=== PATIENT | female | born 1935 | race Caucasian/White ===

== ENCOUNTER → 2016-08-29 | Outpatient (CLI) | payer MEDICARE, MEDICAID ==
--- NOTE | 2016-08-29 11:08 | REP ---
Chest two views HISTORY: Cough Comparison: 07/26/2012 The lungs are hyperinflated. A minimal increase in interstitial markings is present in the lungs. The heart is normal in size. The pulmonary vasculature is normal in appearance. The bony structure is intact. IMPRESSION: COPD.
== END ==
LOC: M CLY 10:14
PROVIDERS: ATTEND Physician Assistant
DX: J44.9 Chronic obstructive pulmonary disease, unspecified (principal)

== ENCOUNTER → 2016-11-27 | Outpatient (REF) | payer MEDICARE, MEDICAID ==
[2016-11-27 18:35] LABS: ALBUMIN/GLOBULIN RATIO 1.33 (1.00-1.93); ALKALINE PHOSPHATASE 110 U/L (45-117); ALT/SGPT 27 U/L (12-78); ANION GAP 10 MEQ/L (8-16); AST/SGOT 20 U/L (15-37); BILIRUBIN,TOTAL 0.8 MG/DL (0.2-1.0); BLOOD UREA NITROGEN 14 MG/DL (7-18); CALCIUM LEVEL 9.4 MG/DL (8.8-10.2); CARBON DIOXIDE LEVEL 24 MEQ/L (21-32); CHLORIDE LEVEL 107 MEQ/L (98-107); CHOLESTEROL LEVEL 177 MG/DL (<200); CREATININE FOR GFR 0.85 MG/DL (0.55-1.02); GLOMERULAR FILTRATION RATE > 60.0 (>32); GLUCOSE, FASTING 117 MG/DL (83-110); SODIUM LEVEL 141 MEQ/L (136-145); TRIGLYCERIDES LEVEL 187 MG/DL (<150)
== END ==
LOC: M SFHCCAPE 09:38
PROVIDERS: ATTEND Physician Assistant
DX: R73.01 Impaired fasting glucose (principal); E78.5 Hyperlipidemia, unspecified

== ENCOUNTER 2017-03-10 21:48 | Emergency (ER) | payer OTHER, MEDICAID ==
[~2017-03-10] VITALS: Ht 172.7 cm; Wt 81.8 kg
[2017-03-10] MEDS ORDERED: LOSA50TA20 PO (22:01)
[2017-03-10] MEDS ORDERED: EZET10TA PO (22:01)
[2017-03-10] MEDS ORDERED: ASPI1TAB PO (22:01)
[2017-03-10] MEDS ORDERED: PREDOPD (22:01)
[2017-03-10] MEDS ORDERED: ATEN50TA2 PO (22:01)
[2017-03-10] MEDS ORDERED: SILVER NITRATE APPLICATOR TOP ONE (22:45)
[2017-03-10] MEDS ORDERED: COCAINE 4% TOP SOLN 4 ML VIAL TOP ONE (22:45)
[2017-03-10 22:58] VITALS: BP 143/82
== END 2017-03-10 22:59 | disposition home or self-care (01) ==
LOC: M ED 21:48
DX: R04.0 Epistaxis (principal); I10 Essential (primary) hypertension; E78.5 Hyperlipidemia, unspecified; Z79.899 Other long term (current) drug therapy; Z79.82 Long term (current) use of aspirin

== ENCOUNTER → 2017-06-18 | Outpatient (REF) | payer OTHER, MEDICAID ==
[2017-06-18 17:53] LABS: ALBUMIN 3.7 GM/DL (3.2-5.2); ALBUMIN/GLOBULIN RATIO 1.19 (1.00-1.93); ALKALINE PHOSPHATASE 106 U/L (45-117); ALT/SGPT 23 U/L (12-78); ANION GAP 10 MEQ/L (8-16); AST/SGOT 17 U/L (7-37); BILIRUBIN,TOTAL 0.6 MG/DL (0.2-1.0); BLOOD UREA NITROGEN 13 MG/DL (7-18); CALCIUM LEVEL 8.7 MG/DL (8.8-10.2); CARBON DIOXIDE LEVEL 25 MEQ/L (21-32); CHLORIDE LEVEL 106 MEQ/L (98-107); CHOLESTEROL LEVEL 151 MG/DL (<200); CHOLESTEROL RISK RATIO 3.145 (<5); CREATININE FOR GFR 0.83 MG/DL (0.55-1.30); GLOMERULAR FILTRATION RATE > 60.0 (>32); GLUCOSE, FASTING 129 MG/DL (70-100); HDL CHOLESTEROL 48 MG/DL (>40); LDL CHOLESTEROL 75.6 MG/DL (<100); NON-HDL-C 103 MG/DL; POTASSIUM SERUM 3.9 MEQ/L (3.5-5.1); SODIUM LEVEL 141 MEQ/L (136-145); TOTAL PROTEIN 6.8 GM/DL (6.4-8.2); TRIGLYCERIDES LEVEL 137 MG/DL (<150)
[2017-06-18 18:58] LABS: CREATININE, URINE 28.2 MG/DL; MALB URINE SIEMENS < 5.0 MG/L; MAU/CREAT RATIO 17.7 MCG/MG (0.0-30.0)
[2017-06-18 20:01] LABS: ESTIMATED AVERAGE GLUCOSE 157 MG/DL (60-110); HEMOGLOBIN A1c 7.1 %
== END ==
LOC: M SFHCCAPE 08:40
DX: I10 Essential (primary) hypertension (principal); E11.9 Type 2 diabetes mellitus without complications
CPT/HCPCS: 80053

== ENCOUNTER → 2017-12-05 | Outpatient (REF) | payer OTHER, MEDICAID ==
[2017-12-05 17:26] LABS: ALBUMIN/GLOBULIN RATIO 1.29 (1.00-1.93); ALKALINE PHOSPHATASE 108 U/L (45-117); ALT/SGPT 25 U/L (12-78); ANION GAP 9 MEQ/L (8-16); AST/SGOT 17 U/L (7-37); BILIRUBIN,TOTAL 0.8 MG/DL (0.2-1.0); BLOOD UREA NITROGEN 9 MG/DL (7-18); CARBON DIOXIDE LEVEL 25 MEQ/L (21-32); CHLORIDE LEVEL 109 MEQ/L (98-107); CHOLESTEROL LEVEL 162 MG/DL (<200); CHOLESTEROL RISK RATIO 3.056 (<5); GLOMERULAR FILTRATION RATE > 60.0 (>32); GLUCOSE, FASTING 118 MG/DL (70-100); HDL CHOLESTEROL 53 MG/DL (>40); LDL CHOLESTEROL 78.2 MG/DL (<100); NON-HDL-C 109 MG/DL; SODIUM LEVEL 143 MEQ/L (136-145); TOTAL PROTEIN 7.1 GM/DL (6.4-8.2); TRIGLYCERIDES LEVEL 154 MG/DL (<150)
[2017-12-05 17:34] LABS: ESTIMATED AVERAGE GLUCOSE 160 MG/DL (60-110); HEMOGLOBIN A1c 7.2 %
== END ==
LOC: M SFHCCAPE 08:57
DX: I10 Essential (primary) hypertension (principal); E11.9 Type 2 diabetes mellitus without complications
CPT/HCPCS: 80053

== ENCOUNTER → 2017-12-18 | Outpatient (CLI) | payer OTHER, MEDICAID | LOC: M CLY 13:25 | DX: M25.561 Pain in right knee (principal) | CPT/HCPCS: 73564 ==

== ENCOUNTER → 2018-02-20 | Outpatient (REF) | payer OTHER, MEDICAID | LOC: M LAB REF 13:09 | DX: L02.411 Cutaneous abscess of right axilla (principal) | CPT/HCPCS: 87186 ==

== ENCOUNTER → 2018-04-03 | Outpatient (REF) | payer OTHER, MEDICAID ==
[2018-04-03 16:54] LABS: BASO % 0.6 % (0.0-1.0); EOS # 0.2 10^3/uL (0.0-0.50); EOS % 3.5 % (0.0-3.0); HEMATOCRIT 39.2 % (36.0-47.0); HEMOGLOBIN 13.3 g/dl (12.0-15.5); IMMATURE GRANULOCYTE % 0.4 % (0-3.0); LYMPH # 1.6 10^3/uL (1.5-4.5); LYMPH % 29.4 % (24.0-44.0); MEAN CORPUSCULAR HEMOGLOBIN 30.9 pg (27.0-33.0); MEAN CORPUSCULAR HGB CONC 33.9 g/dl (32.0-36.5); MONO # 0.6 10^3/uL (0.0-0.8); MONO % 11.9 % (0.0-5.0); NEUTROPHILS # 2.9 10^3/uL (1.8-7.7); NEUTROPHILS % 54.2 % (36.0-66.0); PLATELET COUNT, AUTOMATED 180 10^3/uL (150-450); RED BLOOD COUNT 4.31 10^6/uL (4.00-5.40); RED CELL DISTRIBUTION WIDTH 13.7 % (11.5-14.5); WHITE BLOOD COUNT 5.4 10^3/uL (4.0-10.0)
[2018-04-03 17:00] LABS: ALBUMIN 3.9 GM/DL (3.2-5.2); ALBUMIN/GLOBULIN RATIO 1.39 (1.00-1.93); ALKALINE PHOSPHATASE 104 U/L (45-117); ALT/SGPT 24 U/L (12-78); ANION GAP 8 MEQ/L (8-16); AST/SGOT 16 U/L (7-37); BILIRUBIN,TOTAL 0.8 MG/DL (0.2-1.0); BLOOD UREA NITROGEN 16 MG/DL (7-18); CALCIUM LEVEL 8.8 MG/DL (8.8-10.2); CARBON DIOXIDE LEVEL 27 MEQ/L (21-32); CHLORIDE LEVEL 105 MEQ/L (98-107); CHOLESTEROL LEVEL 162 MG/DL (<200); CHOLESTEROL RISK RATIO 3.306 (<5); CREATININE FOR GFR 0.94 MG/DL (0.55-1.30); GLOMERULAR FILTRATION RATE > 60.0 (>32); GLUCOSE, FASTING 137 MG/DL (70-100); HDL CHOLESTEROL 49 MG/DL (>40); LDL CHOLESTEROL 86 MG/DL (<100); NON-HDL-C 113 MG/DL; POTASSIUM SERUM 4.3 MEQ/L (3.5-5.1); SODIUM LEVEL 140 MEQ/L (136-145); TOTAL PROTEIN 6.7 GM/DL (6.4-8.2); TRIGLYCERIDES LEVEL 137 MG/DL (<150)
[2018-04-03 17:13] LABS: ESTIMATED AVERAGE GLUCOSE 163 MG/DL (60-110); HEMOGLOBIN A1c 7.3 %
[2018-04-03 17:28] LABS: MALB URINE SIEMENS 14.7 MG/L; MAU/CREAT RATIO 6.4 MCG/MG (0.0-30.0)
== END ==
LOC: M SFHCCAPE 08:37
DX: I10 Essential (primary) hypertension (principal); E11.9 Type 2 diabetes mellitus without complications; E78.5 Hyperlipidemia, unspecified
CPT/HCPCS: 84443

== ENCOUNTER 2018-07-08 15:35 | Emergency (ER) | payer MEDICARE, MEDICAID ==
[~2018-07-08] VITALS: Ht 175.3 cm; Wt 81.8 kg
[~2018-07-08 15:35] MED LIST: ASPI1TAB PO; ATEN50TA2 PO; EZET10TA PO; LOSA50TA88 PO; PREDOPD
[2018-07-08] MEDS ORDERED: DICL1GEL3 (15:40)
[2018-07-08] MEDS ORDERED: SILVER NITRATE APPLICATOR TOP ONE (18:15)
[2018-07-08] MEDS ORDERED: LOSARTAN 50 MG TAB PO ONE (18:15)
[2018-07-08 20:21] VITALS: BP 143/90
== END 2018-07-08 20:27 | disposition home or self-care (01) ==
LOC: M ED 15:35
DX: R04.0 Epistaxis (principal); I10 Essential (primary) hypertension; E78.5 Hyperlipidemia, unspecified; Z79.899 Other long term (current) drug therapy

== ENCOUNTER → 2018-11-05 | Outpatient (REF) | payer MEDICARE, MEDICAID ==
[~2018-11-05] MED LIST changes: -ASPI1TAB PO; +ASPI81TA26 PO; +DICL1GEL3; -EZET10TA PO; +EZET10TA21 PO
[2018-11-05 19:23] LABS: BASO % 0.7 % (0.0-1.0); EOS # 0.2 10^3/uL (0.0-0.50); EOS % 3.5 % (0.0-3.0); HEMATOCRIT 41.5 % (36.0-47.0); HEMOGLOBIN 13.7 g/dl (12.0-15.5); LYMPH # 2.1 10^3/uL (1.5-4.5); LYMPH % 36.7 % (24.0-44.0); MEAN CORPUSCULAR HEMOGLOBIN 30.2 pg (27.0-33.0); MEAN CORPUSCULAR VOLUME 91.4 fl (80.0-96.0); MONO # 0.6 10^3/uL (0.0-0.8); MONO % 10.3 % (0.0-5.0); NEUTROPHILS # 2.8 10^3/uL (1.8-7.7); NEUTROPHILS % 48.5 % (36.0-66.0); PLATELET COUNT, AUTOMATED 186 10^3/uL (150-450); RED BLOOD COUNT 4.54 10^6/uL (4.00-5.40); WHITE BLOOD COUNT 5.8 10^3/uL (4.0-10.0)
[2018-11-05 19:30] LABS: ALBUMIN 4.3 GM/DL (3.2-5.2); ALT/SGPT 22 U/L (12-78); BILIRUBIN,TOTAL 0.8 MG/DL (0.2-1.0); BLOOD UREA NITROGEN 14 MG/DL (7-18); CALCIUM LEVEL 9.8 MG/DL (8.8-10.2); CARBON DIOXIDE LEVEL 27 MEQ/L (21-32); CHLORIDE LEVEL 105 MEQ/L (98-107); CHOLESTEROL LEVEL 226 MG/DL (<200); CHOLESTEROL RISK RATIO 4.035 (<5); CREATININE FOR GFR 0.91 MG/DL (0.55-1.30); FREE T4 1.07 NG/DL (0.76-1.46); GLOMERULAR FILTRATION RATE > 60.0 (>32); GLUCOSE, FASTING 118 MG/DL (70-100); HDL CHOLESTEROL 56 MG/DL (>40); LDL CHOLESTEROL 130 MG/DL (<100); NON-HDL-C 170 MG/DL; POTASSIUM SERUM 4.1 MEQ/L (3.5-5.1); SODIUM LEVEL 140 MEQ/L (136-145); TOTAL PROTEIN 7.6 GM/DL (6.4-8.2); TRIGLYCERIDES LEVEL 198 MG/DL (<150)
[2018-11-05 19:52] LABS: CREATININE, URINE 37.9 MG/DL; MALB URINE SIEMENS 12.4 MG/L; MAU/CREAT RATIO 32.7 MCG/MG (0.0-30.0)
[2018-11-05 19:53] LABS: HEMOGLOBIN A1c 7.1 %
== END ==
LOC: M SFHCCAPE 09:10
PROVIDERS: ATTEND Physician Assistant
DX: I10 Essential (primary) hypertension (principal); E78.5 Hyperlipidemia, unspecified; E11.9 Type 2 diabetes mellitus without complications

== ENCOUNTER → 2019-01-16 | Outpatient (REF) | payer MEDICARE, MEDICAID ==
[2019-01-16 17:47] LABS: FREE T4 1.05 NG/DL (0.76-1.46); THYROID STIMULATING HORMONE 4.28 uIU/ML (0.358-3.740)
== END ==
LOC: M SFHCCAPE 09:09
PROVIDERS: ATTEND Physician Assistant
DX: R79.89 Other specified abnormal findings of blood chemistry (principal); I10 Essential (primary) hypertension

== ENCOUNTER → 2019-03-17 | Outpatient (REF) | payer MEDICARE, MEDICAID ==
[2019-03-17 17:08] LABS: ALBUMIN 3.9 GM/DL (3.2-5.2); ALT/SGPT 23 U/L (12-78); BILIRUBIN,TOTAL 1.2 MG/DL (0.2-1.0); BLOOD UREA NITROGEN 16 MG/DL (7-18); CALCIUM LEVEL 9.2 MG/DL (8.8-10.2); CARBON DIOXIDE LEVEL 28 MEQ/L (21-32); CHLORIDE LEVEL 103 MEQ/L (98-107); CHOLESTEROL LEVEL 180 MG/DL (<200); CHOLESTEROL RISK RATIO 3.529 (<5); GLOMERULAR FILTRATION RATE > 60.0 (>32); GLUCOSE, FASTING 130 MG/DL (70-100); HDL CHOLESTEROL 51 MG/DL (>40); LDL CHOLESTEROL 106 MG/DL (<100); NON-HDL-C 129 MG/DL; POTASSIUM SERUM 4.2 MEQ/L (3.5-5.1); SODIUM LEVEL 140 MEQ/L (136-145); TOTAL PROTEIN 7.2 GM/DL (6.4-8.2); TRIGLYCERIDES LEVEL 116 MG/DL (<150)
[2019-03-17 19:23] LABS: HEMOGLOBIN A1c 7.3 %
== END ==
LOC: M SFHCCAPE 08:30
PROVIDERS: ATTEND Physician Assistant
DX: E11.69 Type 2 diabetes mellitus with other specified complication (principal)

== ENCOUNTER → 2019-09-23 | Outpatient (REF) | payer OTHER, MEDICAID ==
[2019-09-23 12:59] LABS: BLOOD UREA NITROGEN 13 MG/DL (7-18); CALCIUM LEVEL 9.1 MG/DL (8.8-10.2); CARBON DIOXIDE LEVEL 26 MEQ/L (21-32); CHLORIDE LEVEL 108 MEQ/L (98-107); CREATININE FOR GFR 0.74 MG/DL (0.55-1.30); FREE T4 1.17 NG/DL (0.76-1.46); GLOMERULAR FILTRATION RATE > 60.0 (>32); GLUCOSE, FASTING 118 MG/DL (70-100); POTASSIUM SERUM 4.2 MEQ/L (3.5-5.1); SODIUM LEVEL 142 MEQ/L (136-145)
== END ==
LOC: M SFHCCLAY 08:56
PROVIDERS: ATTEND Nurse Practitioner Family
DX: E03.9 Hypothyroidism, unspecified (principal); E11.69 Type 2 diabetes mellitus with other specified complication

== ENCOUNTER → 2019-10-02 | Outpatient (CLI) | payer OTHER, MEDICAID ==
[~2019-10-02] MED LIST changes: +AMLO2.5T3 PO; +METF500T13 PO; +PRED20TA PO; +PREDOPD OU; +VENTAER INH
--- NOTE | 2019-10-03 01:49 | REP ---
Clinical: Nontraumatic left elbow pain Technique: AP, lateral, bilateral oblique views of the left elbow. Findings: Generalized age-related changes to the osseous structures and joint space is noted. No acute fracture or dislocation is appreciated. Surrounding soft tissues are unremarkable. Lateral view demonstrates normal positioning to the anterior and posterior fat pads without evidence for effusion/hemarthrosis. No subcutaneous emphysema or foreign body identified. Impression: Generalized age-related changes. Electronically Signed by Benjamin Casiano MD 10/03/2019 01:41 A
== END ==
LOC: M CLY 13:35
PROVIDERS: ATTEND Physician Assistant
DX: M25.522 Pain in left elbow (principal)
CPT/HCPCS: 73080; G0463

== ENCOUNTER 2020-03-20 18:12 | Inpatient (IN) | payer OTHER, MEDICAID ==
[~2020-03-20] VITALS: Ht 175.3 cm; Wt 77.9 kg
[~2020-03-20 18:12] MED LIST changes: -AMLO2.5T3 PO; -METF500T13 PO; -PRED20TA PO; -PREDOPD OU; -VENTAER INH
[2020-03-20] MEDS ORDERED: COMBIVENT RESPIMAT 100-20MCG INHALER 4GM INH ONE (18:45)
[2020-03-20 18:51] VITALS: O2SAT 92
[2020-03-20] MEDS ORDERED: METF500T13 PO (18:54)
[2020-03-20] MEDS ORDERED: AMLO2.5T3 PO (18:54)
[2020-03-20 19:03] LABS: BASO % 0.3 % (0.0-1.0); HEMATOCRIT 37.7 % (36.0-47.0); HEMOGLOBIN 12.4 g/dl (12.0-15.5); LYMPH # 0.8 10^3/uL (1.5-5.0); MEAN CORPUSCULAR HEMOGLOBIN 29.6 pg (27.0-33.0); MEAN CORPUSCULAR HGB CONC 32.9 g/dl (32.0-36.5); MONO # 0.4 10^3/uL (0.0-0.8); MONO % 13.5 % (0.0-5.0); NEUTROPHILS # 1.7 10^3/uL (1.5-8.5); NEUTROPHILS % 58.5 % (36.0-66.0); PLATELET COUNT, AUTOMATED 141 10^3/uL (150-450); RED BLOOD COUNT 4.19 10^6/uL (4.00-5.40); WHITE BLOOD COUNT 2.9 10^3/uL (4.0-10.0)
[2020-03-20 19:13] LABS: INR 0.97; PROTHROMBIN TIME 13.1 SECONDS (12.5-14.3)
[2020-03-20 19:14] LABS: PARTIAL THROMBOPLASTIN TIME 35.4 SECONDS (24.2-38.5)
[2020-03-20] MEDS ORDERED: ACETAMINOPHEN TAB 650MG DOSE (2X325MG) PO ONE (19:15)
[2020-03-20 19:16] LABS: D-DIMER QUANT 682.72 ng/ml (<500)
[2020-03-20 19:29] LABS: ALBUMIN 3.7 GM/DL (3.2-5.2); ALT/SGPT 36 U/L (12-78); BILIRUBIN,DIRECT 0.3 MG/DL (0.0-0.2); BILIRUBIN,TOTAL 0.7 MG/DL (0.2-1.0); BLOOD UREA NITROGEN 12 MG/DL (7-18); CALCIUM LEVEL 8.2 MG/DL (8.8-10.2); CARBON DIOXIDE LEVEL 23 MEQ/L (21-32); CHLORIDE LEVEL 106 MEQ/L (98-107); CK-MB VALUE MASS < 1.0 NG/ML (<3.6); CPK CREATINE PHOSPHOKINASE 64 U/L (26-192); CREATININE FOR GFR 0.81 MG/DL (0.55-1.30); GLOMERULAR FILTRATION RATE > 60.0 (>32); GLUCOSE, FASTING 122 MG/DL (70-100); MB/CK RELATIVE INDEX 1.56 (< OR =4); NT-PRO BNP 136 PG/ML (<450); POTASSIUM SERUM 3.9 MEQ/L (3.5-5.1); SODIUM LEVEL 139 MEQ/L (136-145); TOTAL PROTEIN 6.8 GM/DL (6.4-8.2); TROPONIN I < 0.02 NG/ML (< 0.10)
[2020-03-20] MEDS ORDERED: ISOVUE-370 76% 100ML VIAL As Ordered ONE (19:53)
[2020-03-20] MEDS ORDERED: HumaLOG INSULIN (NovoLOG) PER UNIT SC SCH (21:00)
--- NOTE | 2020-03-20 21:16 | REPVR ---
PROCEDURE INFORMATION: Exam: CT Angiography Chest With Contrast Exam date and time: 03/20/2020 8:17 PM Age: 84 years old Clinical indication: Shortness of breath; Chest pain; Additional info: Chest pain, SOB TECHNIQUE: Imaging protocol: Computed tomographic angiography of the chest with intravenous contrast. 3D rendering (Not supervised by radiologist): MIP and/or 3D reconstructed images were created by the technologist. Radiation optimization: All CT scans at this facility use at least one of these dose optimization techniques: automated exposure control; mA and/or kV adjustment per patient size (includes targeted exams where dose is matched to clinical indication); or iterative reconstruction. Contrast material: ISOVUE 370; Contrast volume: 75 ml; Contrast route: INTRAVENOUS (IV); COMPARISON: CR CHEST 2 VIEW 08/29/2016 10:32 AM FINDINGS: Pulmonary arteries: There is opacification of the pulmonary arteries with no evidence of pulmonary embolus. Aorta: There is opacification of the aorta which appears intact. Lungs: There is no evidence of pneumothorax or pleural effusion. There are a few scattered patchy areas of interstitial density greater on the left which may represent interstitial pneumonic infiltrate. Heart: The heart is normal in size and there is no pericardial effusion. Lymph nodes: Unremarkable. No enlarged lymph nodes. Bones/joints: Unremarkable. No acute fracture. Soft tissues: Unremarkable. IMPRESSION: 1. No evidence of pulmonary embolus. 2. Small patchy areas of interstitial infiltrate including the left hilar region and lung bases. Electronically signed by: Jose D Garcia On 03/20/2020 21:15:53 PM
[2020-03-20 22:11] LABS: C REACTIVE PROTEIN QUANTITATIV 2.77 MG/DL (0.00-0.30)
[2020-03-20] MEDS ORDERED: PREDOPD OU (22:11)
[2020-03-20] MEDS ORDERED: MAALOX 30 ML SUSP *UDC PO PRN (22:45)
[2020-03-20] MEDS ORDERED: MOM 30ML SUSPENSION UDC PO PRN (22:45)
[2020-03-20] MEDS ORDERED: GLUCAGON INJ 1MG VIAL SC PRN (22:45)
[2020-03-20] MEDS ORDERED: GLUCOSE 4GM CHEW TABLET PO PRN (22:45)
[2020-03-20] MEDS ORDERED: DEXTROSE 50% 50 ML SYRINGE IV PRN (22:45)
--- NOTE | 2020-03-20 23:30 | HPEPDOC ---
[facility] Medical History & Physical Date of Admission Mar 20, 2020 Date of Service: Mar 20, 2020 Primary Care Physician: Samantha Olivier DIETITIAN ASSISTANT Attending Physician: FELIX ARNOLD MD History and Physical TIME OF SERVICE: 1000pm CHIEF COMPLAINT: HISTORY OF PRESENT ILLNESS: This 84-year-old female's ex- was diagnosed with COVID-19 on Mar 12 recently stayed with her; she was under quarantine until Mar 16 but developed symptoms. Specifically she has developed gradually worsening chest pain, back pain, shortness of breath, cough active of yellow sputum & muscle aches for 2 days. Apparently her REVIEW OF SYSTEMS: 12 point review of systems negative except as listed in HPI PAST MEDICAL/ SURGICAL HISTORY: Chronic HTN NIDDM A1C 7.2% Iritis Uveitis Cholecystectomy Bilateral lumpectomy Hysterectomy Left knee surgery SOCIAL HISTORY: Doesn't' smoke FAMILY HISTORY: Father throat cancer Mother liver and colon cancer. Daughter congenital heart defect ALLERGIES: Please see below. HOME MEDICATIONS: Please see below. PHYSICAL EXAMINATION: VITAL SIGNS: Please see below. GEN: well nourished / well developed/ NAD HEENT: mask is covering lower face CVS: RRR/ NMRG/ no lower extremity edema LUNGS: there is no nasal flaring / she is able to speak full sentences without stopping to take a breath / she is coughing occasionally / she is not using accessory muscles / there is normal respiratory expansion/ lungs are CTAB on RA MSK/EXTREMITIES: NCAT /reclined in hospital bed NEURO: CN 2-12 are grossly intact / speech is not dysarthric PSYCH: alert and oriented to person place and time/ able to understand and follow all commands LABORATORY DATA: 03/20/20 18:47 03/21/20 00:35 Laboratory Tests 2 03/20/20 18:46: Ferritin 307H, Lactate Dehydrogenase 239, C-Reactive Protein, Quantitative 2.77H, Triglycerides Level 67 03/20/20 18:47: Immature Granulocyte % (Auto) 0.7, Neutrophils (%) (Auto) 58.5, Lymphocytes (%) (Auto) 26.0, Monocytes (%) (Auto) 13.5H, Eosinophils (%) (Auto) 1.0, Basophils (%) (Auto) 0.3, Neutrophils # (Auto) 1.7, Lymphocytes # (Auto) 0.8L, Monocytes # (Auto) 0.4, Eosinophils # (Auto) 0.0, Basophils # (Auto) 0.0, Nucleated Red Blood Cells % (auto) 0.0, Prothrombin Time 13.1, Prothromb Time International Ratio 0.97, Activated Partial Thromboplast Time 35.4, Fibrinogen 485H, D-Dimer, Quantitative 682.72H, Anion Gap 10, Glomerular Filtration Rate > 60.0, Calcium Level 8.2L, Total Bilirubin 0.7, Direct Bilirubin 0.3H, Aspartate Amino Transf (AST/SGOT) 32, Alanine Aminotransferase (ALT/SGPT) 36, Alkaline Phosphatase 90, Total Creatine Kinase 64, Creatine Kinase MB < 1.0, Creatine Kinase MB Relative Index 1.56, Troponin I < 0.02, WR-Ylh-V-Type Natriuretic Peptide 136, Total Protein 6.8, Albumin 3.7, Albumin/Globulin Ratio 1.2, Thyroid Stimulating Hormone (TSH) 2.910 IMAGING: CT chest "IMPRESSION: 1. No evidence of pulmonary embolus. 2. Small patchy areas of interstitial infiltrate including the left hilar region and lung bases." MICROBIOLOGY: + COVID 19 / Blood cx pending... ASSESSMENT: is an 84 yr old w a hx of HTN, DM, Iritis & Uveitis who presented w cough, dyspnea, myalgias, chest & back pain after COVID-19 exposure and will be admitted for SIRS/Sepsis 2/2 COVID-19. PLAN: 1. SIRS /Sepsis 2/2 COVID-19 Based on an algorithm developed by the [employer], requested admission because the patient's O2 sats are in the low 90s and her hx of DM and age place her at high risk for deterioration. SIRS criteria: Temp >10.5 WBC <4 / RR 24 Labs that support the diagnosis of COVID include low WBC #, high CRP, low Plts, high ferritin and high d-dimer Plan: admit to medical floor under observation / telemetry / droplet & contact precautions/ continuos pulse ox and supplemental O2 to maintain O2 >92% / Acetaminophen PRN for fever / target MAP at of least 65 to 70 / f/u Is and Os with target UOP of at least 0.5 ml/kg/H / f/u FSBS w target serum glucose 140-180 while acutely ill 2. Chronic HTN Plan: amlodipine, atenolol, losartan 3. NIDDM Her A1C is at the target for her age therefore she doesn't need PO antiglycemic agents Plan: diabetic diet / f/u accuchecks & A1C / hypoglycemia protocol / sliding scale insulin DVT PROPHYLAXIS: lovenox DISPOSITION: home after more than 2 midnight's stay Home Medications Scheduled Amlodipine Besylate (Amlodipine Besylate) 2.5 Mg Tablet, 2.5 MG PO DAILY Atenolol (Atenolol) 50 Mg Tab, 50 MG PO DAILY Losartan Potassium (Losartan Potassium) 50 Mg Tab, 50 MG PO BID Prednisolone Acetate (Prednisolone Acetate 1% Opth Susp) 5 Ml Drops.susp, 1 DROP OU DAILY Allergies Coded Allergies: No Known Allergies (Unverified , 03/10/17) A-FIB/CHADSVASC A-FIB History Current/History of A-Fib/PAF?: No Current PO Anticoag Therapy: No FELIX ARNOLD MD Mar 20, 2020 23:30
[2020-03-20 23:40] VITALS: BP 158/72
[2020-03-21 00:46] LABS: BASO % 0.4 % (0.0-1.0); EOS % 0.7 % (0.0-3.0); HEMATOCRIT 35.8 % (36.0-47.0); HEMOGLOBIN 11.6 g/dl (12.0-15.5); LYMPH # 0.8 10^3/uL (1.5-5.0); LYMPH % 27.6 % (24.0-44.0); MEAN CORPUSCULAR HEMOGLOBIN 29.4 pg (27.0-33.0); MEAN CORPUSCULAR HGB CONC 32.4 g/dl (32.0-36.5); MEAN CORPUSCULAR VOLUME 90.6 fl (80.0-96.0); MONO # 0.3 10^3/uL (0.0-0.8); NEUTROPHILS # 1.7 10^3/uL (1.5-8.5); NEUTROPHILS % 58.9 % (36.0-66.0); PLATELET COUNT, AUTOMATED 131 10^3/uL (150-450); RED BLOOD COUNT 3.95 10^6/uL (4.00-5.40); WHITE BLOOD COUNT 2.8 10^3/uL (4.0-10.0)
[2020-03-21 01:06] LABS: INR 1.08; PROTHROMBIN TIME 14.2 SECONDS (12.5-14.3)
[2020-03-21 01:07] LABS: PARTIAL THROMBOPLASTIN TIME 32.4 SECONDS (24.2-38.5)
[2020-03-21 01:11] LABS: D-DIMER QUANT 620.06 ng/ml (<500)
[2020-03-21 01:21] LABS: FERRITIN 303 NG/ML (8-252); LDH LACTATE DEHYDROGENASE 223 U/L (84-246); NT-PRO BNP 226 PG/ML (<450); TRIGLYCERIDES LEVEL 62 MG/DL (<150); TROPONIN I < 0.02 NG/ML (< 0.10)
[2020-03-21 01:22] LABS: CK-MB VALUE MASS 1.2 NG/ML (<3.6); CPK CREATINE PHOSPHOKINASE 68 U/L (26-192); HEMOGLOBIN A1c 7.2 %; MB/CK RELATIVE INDEX 1.76 (< OR =4); TROPONIN I < 0.02 NG/ML (< 0.10)
[2020-03-21] MEDS: LOSARTAN 50MG TABLET PO SCH ×3 (01:57→21:13)
[2020-03-21 04:00] VITALS: BP 131/62
--- NOTE | 2020-03-21 06:37 | ECGEPIP ---
[facility] - ED Test Date: 2020-03-20 Pat Name: KRYSTYNA MARTINEZ Department: Room: [place] [address] Gender: Female Cooler Deliverer: vita : 1935 Requested By: HELEN Ewing Order Number: [id number] Reading MD: Jabier Fitzpatrick Measurements Intervals [place] Rate: 82 P: -1 ME: 185 QRS: -24 QRSD: 90 T: 63 QT: 359 QTc: 421 Interpretive Statements SINUS RHYTHM BORDERLINE LEFT AXIS DEVIATION MINIMAL ST DEPRESSION CLINICALY CORRELATE NO PRIOR ECG FOR COMPARISON Electronically Signed on 03-21-2020 6:36:55 EST by Jabier Fitzpatrick
[2020-03-21] MEDS: HumaLOG INSULIN (NovoLOG) PER UNIT SC SCH ×2 (07:27→12:09)
[2020-03-21] MEDS: ENOXAPARIN 40MG/0.4ML SYRINGE (J1650 PER 10MG) SC SCH (07:58)
[2020-03-21] MEDS: prednisoLONE ACET 1% OPHTH SUSP 5ML OU SCH (07:59)
[2020-03-21 08:00] VITALS: BP 132/65
[2020-03-21] MEDS: ASPIRIN 81 MG ENTERIC TAB PO SCH (08:00)
[2020-03-21] MEDS: atenoloL 50 MG TAB PO SCH (08:00)
[2020-03-21 08:21] LABS: BASO % 0.4 % (0.0-1.0); EOS % 1.6 % (0.0-3.0); HEMATOCRIT 36.3 % (36.0-47.0); HEMOGLOBIN 11.5 g/dl (12.0-15.5); LYMPH # 0.7 10^3/uL (1.5-5.0); LYMPH % 28.5 % (24.0-44.0); MEAN CORPUSCULAR HEMOGLOBIN 28.9 pg (27.0-33.0); MEAN CORPUSCULAR HGB CONC 31.7 g/dl (32.0-36.5); MEAN CORPUSCULAR VOLUME 91.2 fl (80.0-96.0); MONO # 0.3 10^3/uL (0.0-0.8); MONO % 11.8 % (0.0-5.0); NEUTROPHILS # 1.4 10^3/uL (1.5-8.5); NEUTROPHILS % 57.3 % (36.0-66.0); PLATELET COUNT, AUTOMATED 133 10^3/uL (150-450); RED BLOOD COUNT 3.98 10^6/uL (4.00-5.40); WHITE BLOOD COUNT 2.5 10^3/uL (4.0-10.0)
[2020-03-21 08:32] LABS: INR 1.01; PROTHROMBIN TIME 13.5 SECONDS (12.5-14.3)
[2020-03-21 08:33] LABS: PARTIAL THROMBOPLASTIN TIME 28.9 SECONDS (24.2-38.5)
[2020-03-21 08:44] LABS: BLOOD UREA NITROGEN 8 MG/DL (7-18); CARBON DIOXIDE LEVEL 28 MEQ/L (21-32); CHLORIDE LEVEL 107 MEQ/L (98-107); CREATININE FOR GFR 0.69 MG/DL (0.55-1.30); GLOMERULAR FILTRATION RATE > 60.0 (>32); GLUCOSE, FASTING 118 MG/DL (70-100); SODIUM LEVEL 140 MEQ/L (136-145)
[2020-03-21 08:45] LABS: ALBUMIN 3.4 GM/DL (3.2-5.2); ALT/SGPT 32 U/L (12-78); BILIRUBIN,DIRECT 0.3 MG/DL (0.0-0.2); BILIRUBIN,TOTAL 0.8 MG/DL (0.2-1.0); CALCIUM LEVEL 8.1 MG/DL (8.8-10.2); FERRITIN 298 NG/ML (8-252); MAGNESIUM LEVEL 1.7 MG/DL (1.8-2.4); NT-PRO BNP 343 PG/ML (<450); TOTAL PROTEIN 6.1 GM/DL (6.4-8.2); TROPONIN I < 0.02 NG/ML (< 0.10)
[2020-03-21] MEDS ORDERED: COMBIVENT RESPIMAT 100-20MCG INHALER 4GM INH PRN (09:00)
[2020-03-21] MEDS: PIPERACILLIN/TAZOBACTAM SOD 3.375 GM in D5W MINI-BAG PLUS 50 ML IV SCH ×3 (10:34→21:13)
[2020-03-21] MEDS ORDERED: MAG SULF 1GM/100ML (MAG RUN) 1 GM in IV 1 EA IV ONE (11:00)
[2020-03-21 15:21] VITALS: BP 137/65
[2020-03-21] MEDS: ACETAMINOPHEN TAB 650MG DOSE (2X325MG) PO PRN (15:27)
--- NOTE | 2020-03-21 16:00 | IPNPDOC ---
Text Note Date of Service The patient was seen on 03/21/20. NOTE SUBJECTIVE: This am she was feeling OK. She does have dry cough no phlegm pr oduction. Denied any SOB. SHe did have a fever of 101.3 this afternoon. PHYSICAL EXAMINATION: VITAL SIGNS: Please see below. GEN: well nourished / well developed/ NAD HEENT: NC, AT, Moist mucous membranes, anicteric eyes. CVS: RRR/ NMRG/ no lower extremity edema LUNGS: there is no nasal flaring / she is able to speak full sentences without stopping to take a breath / she is coughing occasionally / she is not using accessory muscles / there is normal respiratory expansion/ lungs are CTAB on RA Abdomen: SOft nontender, bowel sounds normal. NEURO: CN 2-12 are grossly intact / speech is not dysarthric PSYCH: alert and oriented to person place and time/ able to understand and follow all commands LAbs and Radiology: reviewed ASSESSMENT and PLAN: This 84-year-old with PMH of HTN, DM, Iritis & Uveitis had a recent COVID exposure. Her ex- was diagnosed with COVID-19 on Mar 12 recently stayed with her; she was under quarantine until Mar 16 but developed symptoms on 03/18 . Specifically she has developed gradually worsening chest pain, back pain, shortness of breath, cough active of yellow sputum & muscle aches for 2 days. She was tested positive for COVID-19 on 03/20/20 Sepsis 2/2 COVID-19 Based on an algorithm developed by the [employer], requested admission because the patient's O2 sats are in the low 90s and her hx of DM and age place her at high risk for deterioration. SHe remains in room air with sats in 92% to 94% range. Pneumonia COVID pneumonia or secondary bacterial pneumonia will start on Zosyn Procal pending. Chronic HTN amlodipine, atenolol, losartan DM Her A1C is at the target for her age therefore she doesn't need PO antiglycemic agents diet cotrolled. DVT PROPHYLAXIS: lovenox VS,Fishbone, I+O VS, Fishbone, I+O Laboratory Tests 03/20/20 18:47 03/21/20 00:35 03/21/20 07:35 Vital Signs Date Time Temp Pulse Resp B/P (MAP) Pulse Ox O2 Delivery O2 Flow Rate FiO2 03/21/20 15:21 101.3 81 20 137/65 (89) 94 Room Air 03/21/20 04:00 2.0 I&O- Last 24 Hours up to 6 AM 03/21/20 07:00 Intake Total 0 ml Output Total 200 ml Balance -200 ml LUI MATHIS MD Mar 21, 2020 16:00
[2020-03-21 20:00] VITALS: BP 119/57
[2020-03-21 21:13] VITALS: BP 147/67
[2020-03-22 01:21] LABS: HIV SCREEN CENTAUR SOURCE NEGATIVE (NEGATIVE)
[2020-03-22 04:00] VITALS: BP 131/65
[2020-03-22] MEDS: PIPERACILLIN/TAZOBACTAM SOD 3.375 GM in D5W MINI-BAG PLUS 50 ML IV SCH ×4 (04:17→21:06)
[2020-03-22 04:23] VITALS: BP 134/65
[2020-03-22 07:44] VITALS: BP 130/68
[2020-03-22 08:07] LABS: EOS % 0.9 % (0.0-3.0); HEMOGLOBIN 11.5 g/dl (12.0-15.5); LYMPH # 0.7 10^3/uL (1.5-5.0); LYMPH % 21.8 % (24.0-44.0); MEAN CORPUSCULAR HEMOGLOBIN 29.8 pg (27.0-33.0); MEAN CORPUSCULAR HGB CONC 32.9 g/dl (32.0-36.5); MEAN CORPUSCULAR VOLUME 90.7 fl (80.0-96.0); MONO # 0.3 10^3/uL (0.0-0.8); NEUTROPHILS # 2.2 10^3/uL (1.5-8.5); PLATELET COUNT, AUTOMATED 141 10^3/uL (150-450); RED BLOOD COUNT 3.86 10^6/uL (4.00-5.40); WHITE BLOOD COUNT 3.3 10^3/uL (4.0-10.0)
[2020-03-22 08:17] LABS: INR 1.07; PROTHROMBIN TIME 14.1 SECONDS (12.5-14.3)
[2020-03-22 08:18] LABS: PARTIAL THROMBOPLASTIN TIME 34.7 SECONDS (24.2-38.5)
[2020-03-22] MEDS: ASPIRIN 81 MG ENTERIC TAB PO SCH (08:25)
[2020-03-22] MEDS: ACETAMINOPHEN TAB 650MG DOSE (2X325MG) PO PRN (08:25)
[2020-03-22] MEDS: ENOXAPARIN 40MG/0.4ML SYRINGE (J1650 PER 10MG) SC SCH (08:25)
[2020-03-22] MEDS: atenoloL 50 MG TAB PO SCH (08:26)
[2020-03-22] MEDS: LOSARTAN 50MG TABLET PO SCH ×2 (08:26→21:07)
[2020-03-22] MEDS: dexameTHASONE 20MG/5ML VIAL (J1100 PER 1MG) IV SCH (08:27)
[2020-03-22] MEDS: prednisoLONE ACET 1% OPHTH SUSP 5ML OU SCH (08:27)
[2020-03-22 08:37] LABS: ALBUMIN 2.8 GM/DL (3.2-5.2); ALT/SGPT 31 U/L (12-78); BILIRUBIN,DIRECT 0.2 MG/DL (0.0-0.2); BILIRUBIN,TOTAL 0.8 MG/DL (0.2-1.0); BLOOD UREA NITROGEN 8 MG/DL (7-18); CALCIUM LEVEL 7.8 MG/DL (8.8-10.2); CARBON DIOXIDE LEVEL 24 MEQ/L (21-32); CHLORIDE LEVEL 107 MEQ/L (98-107); CREATININE FOR GFR 0.69 MG/DL (0.55-1.30); FERRITIN 294 NG/ML (8-252); GLOMERULAR FILTRATION RATE > 60.0 (>32); GLUCOSE, FASTING 121 MG/DL (70-100); MAGNESIUM LEVEL 1.7 MG/DL (1.8-2.4); NT-PRO BNP 284 PG/ML (<450); POTASSIUM SERUM 3.7 MEQ/L (3.5-5.1); SODIUM LEVEL 137 MEQ/L (136-145); TOTAL PROTEIN 5.9 GM/DL (6.4-8.2)
[2020-03-22 11:25] LABS: HEPATITIS B SURFACE ANTIGEN NEGATIVE (NEGATIVE)
[2020-03-22 11:53] LABS: HIV 1&2 SCREEN CENTAUR NEGATIVE (NEGATIVE)
--- NOTE | 2020-03-22 12:10 | IPNPDOC ---
Text Note Date of Service The patient was seen on 03/22/20. NOTE SUBJECTIVE: This am she was feeling OK. She does have dry cough no phlegm pr oduction. Had hypoxia at night requiring 2 l oxygen now off oxygen again. Blood culture 05/03 positive. PHYSICAL EXAMINATION: VITAL SIGNS: Please see below. GEN: well nourished / well developed/ NAD HEENT: NC, AT, Moist mucous membranes, anicteric eyes. CVS: RRR/ NMRG/ no lower extremity edema LUNGS: there is no nasal flaring / she is able to speak full sentences without stopping to take a breath / she is coughing occasionally / she is not using accessory muscles / there is normal respiratory expansion/ lungs are CTAB on RA Abdomen: SOft nontender, bowel sounds normal. NEURO: CN 2-12 are grossly intact / speech is not dysarthric PSYCH: alert and oriented to person place and time/ able to understand and follow all commands LAbs and Radiology: reviewed ASSESSMENT and PLAN: This 84-year-old with PMH of HTN, DM, Iritis & Uveitis had a recent COVID exposure. Her ex- was diagnosed with COVID-19 on Mar 12 recently stayed with her; she was under quarantine until Mar 16 but developed symptoms on 03/18 . Specifically she has developed gradually worsening chest pain, back pain, shortness of breath, cough active of yellow sputum & muscle aches for 2 days. She was tested positive for COVID-19 on 03/20/20 Sepsis 2/2 COVID-19 Based on an algorithm developed by the [employer], requested admission because the patient's O2 sats are in the low 90s and her hx of DM and age place her at high risk for deterioration. She remains in room air with sats in 92% to 94% range this am She did need oxygen last night. Sats had dropped to 86% in room air. have started her on dexamethasone. Pneumonia COVID pneumonia or secondary bacterial pneumonia on Zosyn Procal pending. follow up blood cultures. Chronic HTN amlodipine, atenolol, losartan DM Her A1C is at the target for her age therefore she doesn't need PO antiglycemic agents diet cotrolled. DVT PROPHYLAXIS: lovenox VS,Fishbone, I+O VS, Fishbone, I+O Laboratory Tests 03/22/20 07:26 Vital Signs Date Time Temp Pulse Resp B/P (MAP) Pulse Ox O2 Delivery O2 Flow Rate FiO2 03/22/20 08:26 130/68 03/22/20 08:26 73 03/22/20 07:44 99.9 18 93 Room Air 03/22/20 04:23 2.0 I&O- Last 24 Hours up to 6 AM 03/22/20 07:00 Intake Total 1140 ml Output Total 400 ml Balance 740 ml LUI MATHIS MD Mar 22, 2020 12:10
[2020-03-22] MEDS: MAG SULF 1GM/100ML (MAG RUN) 1 GM in IV 1 EA IV SCH ×2 (12:15→13:15)
[2020-03-22 12:33] LABS: HEP C VIRUS AB INDEX SOURCE PT < 0.0 INDEX (0.0-0.8); HEPATITIS B SURFACE ANTIGEN NEGATIVE (NEGATIVE)
[2020-03-22 14:35] VITALS: BP 119/76
[2020-03-22 19:46] VITALS: BP 145/70
[2020-03-23] MEDS: PIPERACILLIN/TAZOBACTAM SOD 3.375 GM in D5W MINI-BAG PLUS 50 ML IV SCH ×2 (05:06→09:13)
[2020-03-23 06:00] VITALS: BP 141/72
[2020-03-23 06:51] LABS: BASO % 0.2 % (0.0-1.0); EOS % 0.2 % (0.0-3.0); HEMATOCRIT 34.4 % (36.0-47.0); HEMOGLOBIN 11.3 g/dl (12.0-15.5); LYMPH # 0.7 10^3/uL (1.5-5.0); LYMPH % 15.6 % (24.0-44.0); MEAN CORPUSCULAR HEMOGLOBIN 29.4 pg (27.0-33.0); MEAN CORPUSCULAR HGB CONC 32.8 g/dl (32.0-36.5); MEAN CORPUSCULAR VOLUME 89.6 fl (80.0-96.0); MONO # 0.4 10^3/uL (0.0-0.8); MONO % 8.9 % (0.0-5.0); NEUTROPHILS # 3.4 10^3/uL (1.5-8.5); NEUTROPHILS % 74.4 % (36.0-66.0); PLATELET COUNT, AUTOMATED 168 10^3/uL (150-450); RED BLOOD COUNT 3.84 10^6/uL (4.00-5.40); WHITE BLOOD COUNT 4.6 10^3/uL (4.0-10.0)
[2020-03-23 07:07] LABS: INR 1.01; PROTHROMBIN TIME 13.5 SECONDS (12.5-14.3)
[2020-03-23 07:08] LABS: PARTIAL THROMBOPLASTIN TIME 26.6 SECONDS (24.2-38.5)
[2020-03-23 07:16] LABS: BLOOD UREA NITROGEN 9 MG/DL (7-18); CALCIUM LEVEL 8.5 MG/DL (8.8-10.2); CARBON DIOXIDE LEVEL 27 MEQ/L (21-32); CHLORIDE LEVEL 108 MEQ/L (98-107); CREATININE FOR GFR 0.67 MG/DL (0.55-1.30); FERRITIN 289 NG/ML (8-252); GLOMERULAR FILTRATION RATE > 60.0 (>32); GLUCOSE, FASTING 128 MG/DL (70-100); MAGNESIUM LEVEL 2.1 MG/DL (1.8-2.4); SODIUM LEVEL 140 MEQ/L (136-145)
[2020-03-23] MEDS: atenoloL 50 MG TAB PO SCH (08:23)
[2020-03-23] MEDS: ASPIRIN 81 MG ENTERIC TAB PO SCH (08:23)
[2020-03-23 08:24] VITALS: BP 124/58
[2020-03-23] MEDS: ENOXAPARIN 40MG/0.4ML SYRINGE (J1650 PER 10MG) SC SCH (08:24)
[2020-03-23] MEDS: LOSARTAN 50MG TABLET PO SCH (08:24)
[2020-03-23 08:25] VITALS: BP 124/58
[2020-03-23] MEDS: prednisoLONE ACET 1% OPHTH SUSP 5ML OU SCH (08:27)
[2020-03-23] MEDS: dexameTHASONE 20MG/5ML VIAL (J1100 PER 1MG) IV SCH (09:00)
[2020-03-23] MEDS ORDERED: PRED20TA PO (10:56)
[2020-03-23] MEDS ORDERED: VENTAER INH (11:01)
--- NOTE | 2020-03-23 17:09 | DS.PDOC ---
Discharge Summary General Date of Admission Mar 22, 2020 at 12:11 Date of Discharge 03/23/20 Discharge Summary PROCEDURES PERFORMED DURING STAY: [None]. ADMITTING DIAGNOSES: Sepsis Pneumonia COVID Chronic HTN DM DISCHARGE DIAGNOSES: Sepsis Pneumonia COVID Chronic HTN DM COMPLICATIONS/CHIEF COMPLAINT: Covid 19, Sirs. HISTORY OF PRESENT ILLNESS: This 84-year-old with PMH of HTN, DM, Iritis & Uveitis had a recent COVID exposure. Her ex- was diagnosed with COVID-19 on Mar 12 recently stayed with her; she was under quarantine until Mar 16 but developed symptoms on 03/18 . Specifically she has developed gradually worsening chest pain, back pain, shortness of breath, cough active of yellow sputum & muscle aches for 2 days. She was tested positive for COVID-19 on 03/20/20 HOSPITAL COURSE: During hospital stay the following issues addressed Sepsis 2/2 COVID-19 Patient received treatment with oxygen, steroids. Improved Pneumonia COVID pneumonia Patient received empirically Zosyn Procal negative blood cultures negative Chronic HTN amlodipine, atenolol, losartan DM Her A1C is at the target for her age therefore she doesn't need PO antiglycemic agents diet cotrolled. DISCHARGE MEDICATIONS: Please see below. ALLERGIES: Please see below. PHYSICAL EXAMINATION ON DISCHARGE: VITAL SIGNS: Please see below. GEN: well nourished / well developed/ NAD HEENT: NC, AT, Moist mucous membranes, anicteric eyes. CVS: RRR/ NMRG/ no lower extremity edema LUNGS: there is no nasal flaring / she is able to speak full sentences without stopping to take a breath / she is coughing occasionally / she is not using accessory muscles / there is normal respiratory expansion/ lungs are CTAB on RA Abdomen: Soft nontender, bowel sounds normal. NEURO: CN 2-12 are grossly intact / speech is not dysarthric PSYCH: alert and oriented to person place and time/ able to understand and follow all commands LABORATORY DATA: Please see below. IMAGING: [facility] NAME: KRYSTYNA MARTINEZ DATE OF : 1935 BUSINESS NUMBER: [id number] AGE: 84 SEX: F REPORT #: [id number] ROOM: ED TECHNOLOGIST: [id number] DOCTOR: HELEN MAGALLANES MD Ordered for Date&Time: 03/20/201943 cc: [~ rep ct ivnm] Service Date&Time: 03/20/202016 This report is in Signed status. Interpretation performed by [facility]. Thank you for having your radiology procedures performed at [facility] RADIOLOGY REPORT Date&Time printed: [~ rep prt dt last] [~ rep prt tm last] Page 2 of [address] [address] RADIOLOGY REPORT This report is in Signed status. Interpretation performed by [facility]. Thank you for having your radiology procedures performed at [facility] RADIOLOGY REPORT Date&Time printed: [~ rep prt dt last] [~ rep prt tm last] Page 1 of 1 PROCEDURE INFORMATION: Exam: CT Angiography Chest With Contrast Exam date and time: 03/20/2020 8:17 PM Age: 84 years old Clinical indication: Shortness of breath; Chest pain; Additional info: Chest pain, SOB TECHNIQUE: Imaging protocol: Computed tomographic angiography of the chest with intravenous contrast. 3D rendering (Not supervised by radiologist): MIP and/or 3D reconstructed images were created by the technologist. Radiation optimization: All CT scans at this facility use at least one of these dose optimization techniques: automated exposure control; mA and/or kV adjustment per patient size (includes targeted exams where dose is matched to clinical indication); or iterative reconstruction. Contrast material: ISOVUE 370; Contrast volume: 75 ml; Contrast route: INTRAVENOUS (IV); COMPARISON: CR CHEST 2 VIEW 08/29/2016 10:32 AM FINDINGS: Pulmonary arteries: There is opacification of the pulmonary arteries with no evidence of pulmonary embolus. Aorta: There is opacification of the aorta which appears intact. Lungs: There is no evidence of pneumothorax or pleural effusion. There are a few scattered patchy areas of interstitial density greater on the left which may represent interstitial pneumonic infiltrate. Heart: The heart is normal in size and there is no pericardial effusion. Lymph nodes: Unremarkable. No enlarged lymph nodes. Bones/joints: Unremarkable. No acute fracture. Soft tissues: Unremarkable. IMPRESSION: 1. No evidence of pulmonary embolus. 2. Small patchy areas of interstitial infiltrate including the left hilar region and lung bases. Electronically signed by: Jose D Garcia On 03/20/2020 21:15:53 PM DD: JOSE D GARCIA MD 03/20/202016 DT: VON 03/20/202114 DS: MARCELINA 03/20/202114 [~ rep ct labl] PROGNOSIS: Fair ACTIVITY: [As tolerated]. DIET: Regular DISPOSITION: 01 Home, Self-Care. DISCHARGE INSTRUCTIONS: Stay on carantine for 2 weeks in total ITEMS TO FOLLOWUP ON ON OUTPATIENT: Follow-up with PCP DISCHARGE CONDITION: [Stable]. TIME SPENT ON DISCHARGE: Greater than 25 minutes. Vital Signs/I&Os Vital Signs Date Time Temp Pulse Resp B/P (MAP) Pulse Ox O2 Delivery O2 Flow Rate FiO2 03/23/20 08:25 96.8 84 20 124/58 (80) 96 Room Air 03/22/20 04:23 2.0 I&O- Last 24 Hours up to 6 AM 03/23/20 06:00 Intake Total 710 ml Output Total 975 ml Balance -265 ml Laboratory Data Labs 24H Laboratory Tests 2 03/23/20 06:39: Immature Granulocyte % (Auto) 0.7, Neutrophils (%) (Auto) 74.4H, Lymphocytes (%) (Auto) 15.6L, Monocytes (%) (Auto) 8.9H, Eosinophils (%) (Auto) 0.2, Basophils (%) (Auto) 0.2, Neutrophils # (Auto) 3.4, Lymphocytes # (Auto) 0.7L, Monocytes # (Auto) 0.4, Eosinophils # (Auto) 0.0, Basophils # (Auto) 0.0, Nucleated Red Blood Cells % (auto) 0.0, Prothrombin Time 13.5, Prothromb Time International Ratio 1.01, Activated Partial Thromboplast Time 26.6, Fibrinogen 480H, Anion Gap 5L, Glomerular Filtration Rate > 60.0, Calcium Level 8.5L, Magnesium Level 2.1, Ferritin 289H CBC/BMP Laboratory Tests 03/23/20 06:39 Microbiology Microbiology 03/21/20 Blood Culture - Preliminary, Resulted No growth after 24 hours . All specim... 03/21/20 Blood Culture - Preliminary, Resulted No growth after 24 hours . All specim... 03/21/20 Blood Culture - Final, Complete Staphylococcus Epidermidis 03/20/20 Respiratory Virus Panel (PCR) (ANY) - Final, Complete SARS-CoV-2 (COVID 19) 03/20/20 Blood Culture - Preliminary, Resulted No Growth after 48 hours. All Specime... Discharge Medications Scheduled Amlodipine Besylate (Amlodipine Besylate) 2.5 Mg Tablet, 2.5 MG PO DAILY, (Reported) Atenolol (Atenolol) 50 Mg Tab, 50 MG PO DAILY, (Reported) Losartan Potassium (Losartan Potassium) 50 Mg Tab, 50 MG PO BID, (Reported) Prednisolone Acetate (Prednisolone Acetate 1% Opth Susp) 5 Ml Drops.susp, 1 DROP OU DAILY, (Reported) Prednisone (Prednisone) 20 Mg Tablet, 20 MG PO BID Scheduled PRN Albuterol Sulfate (Ventolin Hfa) 18 Gm Hfa.aer.ad, 2 PUFF INH Q4-6HP PRN for wheezing Allergies Coded Allergies: No Known Allergies (Unverified , 03/10/17) AYE AVENDAÑO DO Mar 23, 2020 17:09
== END 2020-03-23 12:15 | disposition home or self-care (01) | DRG 871 ==
LOC: M ED 18:12 → M ED INP 18:13 → ENRESERV 23:07 → M 4MAIN 23:36 → EEVIPCON 03-22 12:11 → OBSVTOIN 03-22 12:11
PROVIDERS: ADMIT Internal Medicine; ATTEND Internal Medicine
DX: A41.9 Sepsis, unspecified organism (principal); U07.1 COVID-19; J12.81 Pneumonia due to SARS-associated coronavirus; H20.9 Unspecified iridocyclitis; I10 Essential (primary) hypertension; E11.9 Type 2 diabetes mellitus without complications; Z79.899 Other long term (current) drug therapy

== ENCOUNTER → 2021-06-02 | Outpatient (REF) | payer OTHER, MEDICAID ==
[~2021-06-02] MED LIST changes: +AMLO2.5T3 PO; +LOSA50TA28 PO; -LOSA50TA88 PO; +METF500T13 PO; +PRED20TA PO; +PREDOPD OU; +VENTAER INH
[2021-06-02 15:53] LABS: BASO # 0.1 10^3/uL (0.0-0.2); BASO % 0.9 % (0.0-1.0); EOS # 0.2 10^3/uL (0.0-0.5); EOS % 3.8 % (0.0-3.0); HEMATOCRIT 40.9 % (36.0-47.0); HEMOGLOBIN 13.4 g/dl (12.0-15.5); LYMPH # 2.2 10^3/uL (1.5-5.0); LYMPH % 38.6 % (24.0-44.0); MEAN CORPUSCULAR HEMOGLOBIN 30.6 pg (27.0-33.0); MEAN CORPUSCULAR HGB CONC 32.8 g/dl (32.0-36.5); MEAN CORPUSCULAR VOLUME 93.4 fl (80.0-96.0); MONO # 0.6 10^3/uL (0.0-0.8); NEUTROPHILS # 2.6 10^3/uL (1.5-8.5); NEUTROPHILS % 46.5 % (36.0-66.0); PLATELET COUNT, AUTOMATED 175 10^3/uL (150-450); RED BLOOD COUNT 4.38 10^6/uL (4.00-5.40); WHITE BLOOD COUNT 5.6 10^3/uL (4.0-10.0)
[2021-06-02 16:21] LABS: HEMOGLOBIN A1c 7.1 %
[2021-06-02 16:32] LABS: CALCIUM LEVEL 9.4 MG/DL (8.8-10.2); CREATININE FOR GFR 0.96 MG/DL (0.55-1.30); FREE T4 1.03 NG/DL (0.76-1.46); GLOMERULAR FILTRATION RATE 58.7 (>32); POTASSIUM SERUM 4.8 MEQ/L (3.5-5.1); THYROID STIMULATING HORMONE 2.78 uIU/ML (0.358-3.740); TOTAL PROTEIN 7.1 GM/DL (6.4-8.2)
== END ==
LOC: M SFHCCLAY 09:39
PROVIDERS: ATTEND Nurse Practitioner Family
DX: E11.69 Type 2 diabetes mellitus with other specified complication (principal); I10 Essential (primary) hypertension; E78.5 Hyperlipidemia, unspecified; E03.9 Hypothyroidism, unspecified

== ENCOUNTER 2021-11-17 19:28 | Emergency (ER) | payer OTHER, MEDICAID ==
[~2021-11-17] VITALS: Ht 172.7 cm; Wt 81.8 kg
[2021-11-17 22:49] LABS: BASO % 0.7 % (0.0-1.0); EOS # 0.1 10^3/uL (0.0-0.5); EOS % 2.2 % (0.0-3.0); HEMATOCRIT 38.5 % (36.0-47.0); HEMOGLOBIN 12.7 g/dl (12.0-15.5); LYMPH # 2.2 10^3/uL (1.5-5.0); LYMPH % 36.8 % (24.0-44.0); MEAN CORPUSCULAR HEMOGLOBIN 30.2 pg (27.0-33.0); MEAN CORPUSCULAR VOLUME 91.7 fl (80.0-96.0); MONO # 0.6 10^3/uL (0.0-0.8); MONO % 9.9 % (2.0-8.0); NEUTROPHILS # 2.9 10^3/uL (1.5-8.5); NEUTROPHILS % 50.2 % (36.0-66.0); PLATELET COUNT, AUTOMATED 185 10^3/uL (150-450); WHITE BLOOD COUNT 5.9 10^3/uL (4.0-10.0)
[2021-11-17 23:24] LABS: ALBUMIN 3.9 GM/DL (3.2-5.2); ALT/SGPT 20 U/L (12-78); BILIRUBIN,DIRECT 0.1 MG/DL (0.0-0.2); BILIRUBIN,TOTAL 0.4 MG/DL (0.2-1.0); BLOOD UREA NITROGEN 17 MG/DL (7-18); CALCIUM LEVEL 9.3 MG/DL (8.8-10.2); CARBON DIOXIDE LEVEL 27 MEQ/L (21-32); CHLORIDE LEVEL 109 MEQ/L (98-107); CREATININE FOR GFR 0.87 MG/DL (0.55-1.30); GLOMERULAR FILTRATION RATE > 60.0 (>32); GLUCOSE, FASTING 137 MG/DL (70-100); LIPASE 102 U/L (73-393); POTASSIUM SERUM 4.4 MEQ/L (3.5-5.1); SODIUM LEVEL 140 MEQ/L (136-145); TOTAL PROTEIN 6.9 GM/DL (6.4-8.2)
[2021-11-18] MEDS ORDERED: MORPHINE 2 MG/ML 1ML VIAL IV ONE
[2021-11-18] MEDS ORDERED: ONDANSETRON 4MG 2ML VIAL IV ONE
[2021-11-18] MEDS ORDERED: ISOVUE-370 76% 100ML VIAL As Ordered ONE (00:08)
[2021-11-18 02:26] VITALS: BP 165/75
== END 2021-11-18 02:28 | disposition home or self-care (01) ==
LOC: M ED 19:28
DX: R10.9 Unspecified abdominal pain (principal); R19.7 Diarrhea, unspecified; I10 Essential (primary) hypertension; E78.5 Hyperlipidemia, unspecified; K21.9 Gastro-esophageal reflux disease without esophagitis; Z79.899 Other long term (current) drug therapy
CPT/HCPCS: 74177; 80047; 80048; 80076; 83690; 85025; 99284; J2270; J2405; Q9967

== ENCOUNTER → 2022-08-31 | Outpatient (REF) | payer OTHER, MEDICAID ==
[2022-08-31 18:10] LABS: BASO % 0.6 % (0.0-1.0); EOS # 0.2 10^3/uL (0.0-0.5); HEMATOCRIT 39.3 % (36.0-47.0); HEMOGLOBIN 12.5 g/dl (12.0-15.5); LYMPH # 2.4 10^3/uL (1.5-5.0); LYMPH % 35.4 % (24.0-44.0); MEAN CORPUSCULAR HEMOGLOBIN 28.9 pg (27.0-33.0); MEAN CORPUSCULAR HGB CONC 31.8 g/dl (32.0-36.5); MEAN CORPUSCULAR VOLUME 90.8 fl (80.0-96.0); MONO # 0.6 10^3/uL (0.0-0.8); NEUTROPHILS # 3.5 10^3/uL (1.5-8.5); NEUTROPHILS % 51.9 % (36.0-66.0); PLATELET COUNT, AUTOMATED 196 10^3/uL (150-450); RED BLOOD COUNT 4.33 10^6/uL (4.00-5.40); WHITE BLOOD COUNT 6.7 10^3/uL (4.0-10.0)
[2022-08-31 18:36] LABS: ALBUMIN 4.1 G/DL (3.2-5.2); ALKALINE PHOSPHATASE 99 U/L (46-116); ALT/SGPT 16 U/L (7.0-40); AST/SGOT 17 U/L (<34); BILIRUBIN,TOTAL 0.9 MG/DL (0.3-1.2); BLOOD UREA NITROGEN 13 MG/DL (9-23); CALCIUM LEVEL 9.5 MG/DL (8.3-10.6); CARBON DIOXIDE LEVEL 27 MMOL/L (20-31); CHLORIDE LEVEL 106 MMOL/L (98-107); CHOLESTEROL LEVEL 180 MG/DL (<200); CHOLESTEROL RISK RATIO 3.52 (<5); FREE T4 1.11 NG/DL (0.89-1.76); GLOMERULAR FILTRATION RATE > 60.0 (>32); GLUCOSE, FASTING 144 MG/DL (74-106); LDL CHOLESTEROL 99.2 MG/DL (<100); POTASSIUM SERUM 5.1 MMOL/L (3.5-5.1); SODIUM LEVEL 140 MMOL/L (136-145); THYROID STIMULATING HORMONE 3.542 uIU/ML (0.55-4.78); TRIGLYCERIDES LEVEL 149 MG/DL (<150)
[2022-08-31 18:47] LABS: HEMOGLOBIN A1c 7.4 % (4.0-6.0)
== END ==
LOC: M SFHCCLAY 10:06
PROVIDERS: ATTEND Nurse Practitioner Family
DX: E11.69 Type 2 diabetes mellitus with other specified complication (principal); I10 Essential (primary) hypertension; E78.5 Hyperlipidemia, unspecified; E03.9 Hypothyroidism, unspecified

== ENCOUNTER 2023-01-01 21:51 | Emergency (ER) | payer OTHER, MEDICAID ==
[~2023-01-01] VITALS: Ht 172.7 cm; Wt 86.4 kg
[2023-01-01] MEDS: LOSARTAN 50MG TABLET PO SCH (21:00)
[~2023-01-01 21:51] MED LIST changes: +DICL100G10; -DICL1GEL3
[2023-01-01 22:00] VITALS: TEMP 98
[2023-01-01 22:19] LABS: BASO % 0.6 % (0.0-1.0); EOS # 0.2 10^3/uL (0.0-0.5); EOS % 3.6 % (0.0-3.0); HEMATOCRIT 35.6 % (36.0-47.0); HEMOGLOBIN 11.7 g/dl (12.0-15.5); LYMPH # 2.1 10^3/uL (1.5-5.0); LYMPH % 39.7 % (24.0-44.0); MEAN CORPUSCULAR HEMOGLOBIN 28.8 pg (27.0-33.0); MEAN CORPUSCULAR HGB CONC 32.9 g/dl (32.0-36.5); MEAN CORPUSCULAR VOLUME 87.7 fl (80.0-96.0); MONO # 0.6 10^3/uL (0.0-0.8); MONO % 10.7 % (2.0-8.0); NEUTROPHILS # 2.4 10^3/uL (1.5-8.5); NEUTROPHILS % 45.2 % (36.0-66.0); PLATELET COUNT, AUTOMATED 181 10^3/uL (150-450); RED BLOOD COUNT 4.06 10^6/uL (4.00-5.40); WHITE BLOOD COUNT 5.3 10^3/uL (4.0-10.0)
[2023-01-01 22:51] LABS: ALBUMIN 3.8 G/DL (3.2-5.2); BILIRUBIN,DIRECT 0.1 MG/DL (<0.4); BILIRUBIN,TOTAL 0.6 MG/DL (0.3-1.2); TOTAL PROTEIN 6.8 G/DL (5.7-8.2)
[2023-01-01] MEDS ORDERED: ISOVUE-370 76% 100ML VIAL As Ordered ONE (23:23)
[2023-01-02] MEDS: LOSARTAN 50MG TABLET PO SCH (00:23)
[2023-01-02 00:31] VITALS: BP 150/70
[2023-01-02 00:51] VITALS: O2SAT 94
== END 2023-01-02 01:11 | disposition home or self-care (01) ==
LOC: M ED 21:51 → EDBD 21:51 → M ED 01-02 01:11
DX: K62.5 Hemorrhage of anus and rectum (principal); K52.9 Noninfective gastroenteritis and colitis, unspecified; E11.9 Type 2 diabetes mellitus without complications; I10 Essential (primary) hypertension; E78.5 Hyperlipidemia, unspecified; E03.9 Hypothyroidism, unspecified; Z79.52 Long term (current) use of systemic steroids; Z79.899 Other long term (current) drug therapy
CPT/HCPCS: 36415; 74177; 80047; 80076; 83690; 85025; 99284; Q9967

== ENCOUNTER → 2023-01-30 | Outpatient (CLI) | payer OTHER, MEDICAID ==
[~2023-01-30] MED LIST changes: +DOCU100C16 PO; +GERI8.6T PO; +MED REC COMMENT; +VALS1TAB66 PO
== END ==
LOC: M WHC 09:05
PROVIDERS: ATTEND Nurse Practitioner Family
DX: R92.2 Inconclusive mammogram (principal); N63.11 Unspecified lump in the right breast, upper outer quadrant
CPT/HCPCS: 76641; 77066; G0279

== ENCOUNTER 2023-02-01 01:24 | Inpatient (IN) | payer OTHER, MEDICAID ==
[~2023-02-01] VITALS: Ht 175.3 cm; Wt 94.4 kg
[2023-02-01] VITALS (15 sets, daily range): BP systolic 118–131; BP diastolic 56–64; TEMP 97.2–98.8; O2SAT 87–97
[~2023-02-01 01:24] MED LIST changes: -DOCU100C16 PO; -GERI8.6T PO; -MED REC COMMENT; -VALS1TAB66 PO
[2023-02-01] MEDS ORDERED: ONDANSETRON 4MG 2ML VIAL As Ordered ONE (01:37)
[2023-02-01 02:14] LABS: BASO # 0.1 10^3/uL (0.0-0.2); BASO % 0.6 % (0.0-1.0); EOS # 0.2 10^3/uL (0.0-0.5); EOS % 1.5 % (0.0-3.0); HEMATOCRIT 33.3 % (36.0-47.0); HEMOGLOBIN 10.8 g/dl (12.0-15.5); LYMPH # 2.1 10^3/uL (1.5-5.0); LYMPH % 20.3 % (24.0-44.0); MEAN CORPUSCULAR HEMOGLOBIN 24.4 pg (27.0-33.0); MEAN CORPUSCULAR HGB CONC 32.4 g/dl (32.0-36.5); MEAN CORPUSCULAR VOLUME 75.2 fl (80.0-96.0); MONO # 0.6 10^3/uL (0.0-0.8); MONO % 5.9 % (2.0-8.0); NEUTROPHILS # 7.4 10^3/uL (1.5-8.5); NEUTROPHILS % 71.2 % (36.0-66.0); PLATELET COUNT, AUTOMATED 307 10^3/uL (150-450); RED BLOOD COUNT 4.43 10^6/uL (4.00-5.40); WHITE BLOOD COUNT 10.4 10^3/uL (4.0-10.0)
[2023-02-01 02:39] LABS: LIPASE 52 U/L (12-53)
[2023-02-01 02:41] LABS: ALBUMIN 3.2 G/DL (3.2-5.2); ALKALINE PHOSPHATASE 50 U/L (46-116); ALT/SGPT < 9 U/L (7.0-40); AST/SGOT 10 U/L (<34); BILIRUBIN,DIRECT 0.1 MG/DL (<0.4); BILIRUBIN,TOTAL 0.3 MG/DL (0.3-1.2); BLOOD UREA NITROGEN 6 MG/DL (9-23); CALCIUM LEVEL 9.1 MG/DL (8.3-10.6); CARBON DIOXIDE LEVEL 25 MMOL/L (20-31); CHLORIDE LEVEL 105 MMOL/L (98-107); CK-MB VALUE MASS < 1.0 NG/ML (<3.6); CPK CREATINE PHOSPHOKINASE 29 U/L (34-145); CREATININE FOR GFR 0.48 MG/DL (0.55-1.30); GLOMERULAR FILTRATION RATE > 60.0 (>32); GLUCOSE, FASTING 79 MG/DL (74-106); MB/CK RELATIVE INDEX 3.44 (< OR =4); POTASSIUM SERUM 3.4 MMOL/L (3.5-5.1); SODIUM LEVEL 138 MMOL/L (136-145); TOTAL PROTEIN 6.6 G/DL (5.7-8.2)
[2023-02-01] MEDS ORDERED: ONDANSETRON 4MG 2ML VIAL IV ONE ×2 (03:55→08:20)
[2023-02-01] MEDS ORDERED: MORPHINE 4 MG/ML 1ML VIAL IV PRN (04:25)
[2023-02-01] MEDS ORDERED: ISOVUE-370 76% 100ML VIAL As Ordered ONE (04:33)
[2023-02-01 05:10] LABS: CK-MB VALUE MASS 1.6 NG/ML (<3.6)
[2023-02-01 05:16] LABS: MB/CK RELATIVE INDEX 1.97 (< OR =4)
[2023-02-01 06:51] LABS: RSV AMPLIFICATION NEGATIVE (NEGATIVE)
[2023-02-01] MEDS ORDERED: NS 1,000 ML IV SCH (08:20)
[2023-02-01] MEDS ORDERED: MED REC IN PROGRESS XX SCH (08:35)
[2023-02-01] MEDS ORDERED: INSULIN LISPRO (NovoLOG) PER UNIT SC SCH (09:05)
[2023-02-01] MEDS ORDERED: GLUCAGON INJ 1MG VIAL SC PRN (09:05)
[2023-02-01] MEDS ORDERED: DEXTROSE 50% 50ML SYRINGE IV PRN (09:05)
[2023-02-01] MEDS ORDERED: GLUCOSE 4GM CHEW TABLET PO PRN (09:05)
[2023-02-01] MEDS ORDERED: GERI8.6T PO (09:35)
[2023-02-01] MEDS ORDERED: VALS1TAB66 PO (09:35)
[2023-02-01] MEDS ORDERED: DOCU100C16 PO (09:35)
[2023-02-01] MEDS ORDERED: MED REC CURRENTLY UNOBTAINABLE XX SCH (10:20)
[2023-02-01] MEDS: NS 1,000 ML IV SCH ×2 (11:04→20:08)
[2023-02-01 11:22] LABS: BASO % 0.1 % (0.0-1.0); EOS % 0.1 % (0.0-3.0); HEMATOCRIT 37.9 % (36.0-47.0); HEMOGLOBIN 12.6 g/dl (12.0-15.5); LYMPH # 1.3 10^3/uL (1.5-5.0); LYMPH % 14.7 % (24.0-44.0); MEAN CORPUSCULAR HEMOGLOBIN 29.2 pg (27.0-33.0); MEAN CORPUSCULAR HGB CONC 33.2 g/dl (32.0-36.5); MEAN CORPUSCULAR VOLUME 87.7 fl (80.0-96.0); MONO # 1.1 10^3/uL (0.0-0.8); MONO % 11.6 % (2.0-8.0); NEUTROPHILS # 6.7 10^3/uL (1.5-8.5); NEUTROPHILS % 73.2 % (36.0-66.0); RED BLOOD COUNT 4.32 10^6/uL (4.00-5.40); WHITE BLOOD COUNT 9.1 10^3/uL (4.0-10.0)
[2023-02-01 11:31] LABS: PLATELET COUNT, AUTOMATED 196 10^3/uL (150-450)
[2023-02-01 11:47] LABS: BLOOD UREA NITROGEN 11 MG/DL (9-23); CALCIUM LEVEL 8.8 MG/DL (8.3-10.6); CARBON DIOXIDE LEVEL 28 MMOL/L (20-31); CHLORIDE LEVEL 105 MMOL/L (98-107); CREATININE FOR GFR 0.67 MG/DL (0.55-1.30); GLOMERULAR FILTRATION RATE > 60.0 (>32); GLUCOSE, FASTING 196 MG/DL (74-106); IRON (FE) 58 UG/DL (50-170); MAGNESIUM LEVEL 1.7 MG/DL (1.8-2.4); PERCENT SATURATION 16.8 % (13.2-45.0); POTASSIUM SERUM 4.2 MMOL/L (3.5-5.1); SODIUM LEVEL 139 MMOL/L (136-145); TOTAL IRON BINDING CAPACITY 346 UG/DL (250-425)
[2023-02-01 11:48] LABS: CARCINOEMBRYONIC ANTIGEN < 2.0 NG/ML (<2.5); FERRITIN 15.3 NG/ML (7.3-270.7)
[2023-02-01 11:49] LABS: FOLATE 11.03 NG/ML (>5.4); VITAMIN B12 LEVEL 217 PG/ML (211-911)
[2023-02-01] MEDS ORDERED: HOME MED LIST COMPLETE! XX SCH (12:35)
[2023-02-01] MEDS ORDERED: MED REC COMMENT (13:00)
[2023-02-01 13:04] LABS: INR 1.08; PROTHROMBIN TIME 13.7 SECONDS (12.5-14.5)
[2023-02-01] MEDS: MAG SULF 1GM/100ML (MAG RUN) 100 ML IV SCH ×2 (13:18→14:38)
[2023-02-01] MEDS: INSULIN LISPRO (NovoLOG) PER UNIT SC SCH (18:00)
[2023-02-01] MEDS ORDERED: ENOXAPARIN 40MG/0.4ML SYRINGE (J1650 PER 10MG) SC SCH (21:00)
[2023-02-02] VITALS (16 sets, daily range): BP systolic 118–160; BP diastolic 55–75; TEMP 97.3–98.5; O2SAT 93–96
[2023-02-02] MEDS: NS 1,000 ML IV SCH ×2 (05:22→17:54)
[2023-02-02] MEDS: INSULIN LISPRO (NovoLOG) PER UNIT SC SCH ×5 (06:00→23:34)
[2023-02-02] MEDS ORDERED: SUGAMMADEX SODIUM 500 MG/5 ML VIAL (BRIDION) As Ordered ONE (07:44)
[2023-02-02] MEDS ORDERED: ONDANSETRON 4MG 2ML VIAL As Ordered ONE (07:44)
[2023-02-02] MEDS ORDERED: LIDOCAINE 2% 100MG/5ML SDV (FOR ANES.) As Ordered ONE (07:44)
[2023-02-02] MEDS ORDERED: ROCURONIUM BROMIDE 50MG/5ML VIAL As Ordered ONE ×2 (07:45→09:23)
[2023-02-02] MEDS ORDERED: propofoL 200 MG/20 ML VIAL As Ordered ONE (07:45)
[2023-02-02 08:21] LABS: BASO % 0.4 % (0.0-1.0); EOS # 0.1 10^3/uL (0.0-0.5); EOS % 2.1 % (0.0-3.0); HEMATOCRIT 33.2 % (36.0-47.0); HEMOGLOBIN 10.7 g/dl (12.0-15.5); LYMPH # 1.2 10^3/uL (1.5-5.0); LYMPH % 25.7 % (24.0-44.0); MEAN CORPUSCULAR HGB CONC 32.2 g/dl (32.0-36.5); MONO # 0.7 10^3/uL (0.0-0.8); MONO % 13.6 % (2.0-8.0); NEUTROPHILS # 2.8 10^3/uL (1.5-8.5); PLATELET COUNT, AUTOMATED 153 10^3/uL (150-450); RED BLOOD COUNT 3.69 10^6/uL (4.00-5.40); WHITE BLOOD COUNT 4.8 10^3/uL (4.0-10.0)
[2023-02-02] MEDS ORDERED: fentaNYL 100 MCG/2 ML INJECTION IV PRN ×2 (08:25→12:25)
[2023-02-02] MEDS ORDERED: HYDROMORPHONE HCL 0.5 MG/ 0.5 ML SYRINGE IV PRN (08:25)
[2023-02-02] MEDS ORDERED: ONDANSETRON 4MG 2ML VIAL IV PRN ×2 (08:25→12:25)
[2023-02-02] MEDS ORDERED: LR 1,000 ML IV SCH (08:25)
[2023-02-02] MEDS ORDERED: oxyCODONE 5MG TAB PO PRN (08:25)
[2023-02-02] MEDS ORDERED: ceFAZolin SOD 1 GM in D5W MINI-BAG PLUS 50 ML IV ONE (08:30)
[2023-02-02] MEDS ORDERED: metroNIDAZOLE 500 MG in IV 1 EA IV ONE (08:30)
[2023-02-02 08:40] LABS: BLOOD UREA NITROGEN 8 MG/DL (9-23); CALCIUM LEVEL 7.8 MG/DL (8.3-10.6); CARBON DIOXIDE LEVEL 29 MMOL/L (20-31); CHLORIDE LEVEL 108 MMOL/L (98-107); CREATININE FOR GFR 0.61 MG/DL (0.55-1.30); GLOMERULAR FILTRATION RATE > 60.0 (>32); GLUCOSE, FASTING 131 MG/DL (74-106); POTASSIUM SERUM 4.1 MMOL/L (3.5-5.1); SODIUM LEVEL 141 MMOL/L (136-145)
[2023-02-02] MEDS ORDERED: metroNIDAZOLE/NACL 500MG(5MG/ML) 100ML BAG As Ordered ONE (08:45)
[2023-02-02] MEDS ORDERED: ceFAZolin 1GM VIAL As Ordered ONE (08:45)
[2023-02-02] MEDS ORDERED: fentaNYL 250 MCG/5 ML INJECTION As Ordered ONE (08:56)
[2023-02-02] MEDS ORDERED: ceFAZolin 2 GM/D5W 50 ML IV BAG As Ordered ONE (08:56)
[2023-02-02] MEDS ORDERED: ACETAMINOPHEN 1000MG 100ML IV BAG As Ordered ONE (09:19)
[2023-02-02] MEDS ORDERED: ceFAZolin SOD 2 GM in IV 1 EA IV ONE (09:20)
[2023-02-02] MEDS ORDERED: METOPROLOL 5 MG/5 ML VIAL As Ordered ONE (09:42)
[2023-02-02] MEDS ORDERED: fentaNYL 100 MCG/2 ML INJECTION As Ordered ONE (10:21)
[2023-02-02] MEDS ORDERED: HYDROmorphone HCL 2MG/ML 1ML VIAL As Ordered ONE (10:22)
[2023-02-02] MEDS ORDERED: CALCIUM CHLORIDE 10% 1 GM/10 ML SYR As Ordered ONE (10:51)
[2023-02-02] MEDS ORDERED: ACETAMINOPHEN *IV* 1,000 MG in IV 1 EA IV PRN (12:15)
[2023-02-02] MEDS ORDERED: INSULIN LISPRO (NovoLOG) PER UNIT SC PRN (12:25)
[2023-02-02] MEDS ORDERED: NS 1,000 ML IV SCH (12:25)
[2023-02-02] MEDS: HYDROMORPHONE HCL 0.5 MG/ 0.5 ML SYRINGE IV PRN ×4 (13:00→13:26)
[2023-02-02] MEDS: ONDANSETRON 4MG 2ML VIAL IV PRN (13:01)
[2023-02-02] MEDS: oxyCODONE 5MG TAB PO PRN ×2 (13:02→13:32)
[2023-02-02 14:38] LABS: FREE T4 1.05 NG/DL (0.89-1.76); THYROID STIMULATING HORMONE 1.976 uIU/ML (0.55-4.78)
[2023-02-02] MEDS: prednisoLONE ACET 1% OPHTH SUSP 5ML OU SCH (16:06)
[2023-02-02] MEDS: MORPHINE 4 MG/ML 1ML VIAL IV PRN (18:54)
[2023-02-02] MEDS: ENOXAPARIN 40MG/0.4ML SYRINGE (J1650 PER 10MG) SC SCH (20:23)
[2023-02-03] VITALS (7 sets, daily range): BP systolic 123–161; BP diastolic 67–87; TEMP 98.1–99.2; O2SAT 91–97
[2023-02-03] MEDS: NS 1,000 ML IV SCH ×3 (03:08→22:53)
[2023-02-03] MEDS: MORPHINE 4 MG/ML 1ML VIAL IV PRN (03:57)
[2023-02-03] MEDS: INSULIN LISPRO (NovoLOG) PER UNIT SC SCH ×4 (05:12→23:00)
[2023-02-03 05:47] LABS: HEMATOCRIT 35.4 % (36.0-47.0); HEMOGLOBIN 11.3 g/dl (12.0-15.5); MEAN CORPUSCULAR HEMOGLOBIN 29.1 pg (27.0-33.0); MEAN CORPUSCULAR HGB CONC 31.9 g/dl (32.0-36.5); MEAN CORPUSCULAR VOLUME 91.2 fl (80.0-96.0); PLATELET COUNT, AUTOMATED 185 10^3/uL (150-450); RED BLOOD COUNT 3.88 10^6/uL (4.00-5.40); WHITE BLOOD COUNT 9.1 10^3/uL (4.0-10.0)
[2023-02-03 06:29] LABS: BASOPHILS 1 % (0-1); LYMPHOCYTES 16 % (16-44); METAMYELOCYTES 2 % (0-0); MONOCYTES 5 % (0-5); MYELOCYTES 1 % (0-0); NEUTROPHILS 58 % (28-66); PLATELET ESTIMATE NORMAL (NORMAL)
[2023-02-03 06:30] LABS: ANISOCYTOSIS 1+
[2023-02-03 06:44] LABS: BLOOD UREA NITROGEN 11 MG/DL (9-23); CALCIUM LEVEL 7.7 MG/DL (8.3-10.6); CARBON DIOXIDE LEVEL 20 MMOL/L (20-31); CHLORIDE LEVEL 112 MMOL/L (98-107); CREATININE FOR GFR 0.66 MG/DL (0.55-1.30); GLOMERULAR FILTRATION RATE > 60.0 (>32); GLUCOSE, FASTING 176 MG/DL (74-106); MAGNESIUM LEVEL 1.5 MG/DL (1.8-2.4); POTASSIUM SERUM 4.8 MMOL/L (3.5-5.1); SODIUM LEVEL 141 MMOL/L (136-145)
[2023-02-03] MEDS: MAG SULF 1GM/100ML (MAG RUN) 100 ML IV SCH ×2 (07:32→09:11)
[2023-02-03] MEDS: prednisoLONE ACET 1% OPHTH SUSP 5ML OU SCH (09:11)
[2023-02-03] MEDS: MORPHINE 2 MG/ML 1ML VIAL IV PRN ×2 (09:11→13:11)
[2023-02-03] MEDS: ENOXAPARIN 40MG/0.4ML SYRINGE (J1650 PER 10MG) SC SCH (20:13)
[2023-02-03] MEDS ORDERED: NS 500 ML IV ONE (22:55)
[2023-02-04] VITALS (20 sets, daily range): BP systolic 131–160; BP diastolic 62–84; TEMP 97.2–99.2; O2SAT 78–97
[2023-02-04] MEDS ORDERED: NS 500 ML IV ONE (01:40)
[2023-02-04 04:58] LABS: BASO % 0.3 % (0.0-1.0); EOS % 0.1 % (0.0-3.0); HEMATOCRIT 29.9 % (36.0-47.0); HEMOGLOBIN 9.8 g/dl (12.0-15.5); LYMPH # 0.9 10^3/uL (1.5-5.0); LYMPH % 11.3 % (24.0-44.0); MEAN CORPUSCULAR HEMOGLOBIN 29.2 pg (27.0-33.0); MEAN CORPUSCULAR HGB CONC 32.8 g/dl (32.0-36.5); MONO # 0.9 10^3/uL (0.0-0.8); NEUTROPHILS # 5.9 10^3/uL (1.5-8.5); NEUTROPHILS % 76.8 % (36.0-66.0); PLATELET COUNT, AUTOMATED 165 10^3/uL (150-450); RED BLOOD COUNT 3.36 10^6/uL (4.00-5.40); WHITE BLOOD COUNT 7.7 10^3/uL (4.0-10.0)
[2023-02-04 05:33] LABS: BLOOD UREA NITROGEN 10 MG/DL (9-23); CALCIUM LEVEL 7.5 MG/DL (8.3-10.6); CARBON DIOXIDE LEVEL 22 MMOL/L (20-31); CHLORIDE LEVEL 110 MMOL/L (98-107); CREATININE FOR GFR 0.55 MG/DL (0.55-1.30); GLOMERULAR FILTRATION RATE > 60.0 (>32); GLUCOSE, FASTING 126 MG/DL (74-106); MAGNESIUM LEVEL 1.8 MG/DL (1.8-2.4); POTASSIUM SERUM 3.6 MMOL/L (3.5-5.1); SODIUM LEVEL 143 MMOL/L (136-145)
[2023-02-04] MEDS: INSULIN LISPRO (NovoLOG) PER UNIT SC SCH ×4 (05:34→23:19)
[2023-02-04] MEDS: MORPHINE 4 MG/ML 1ML VIAL IV PRN ×2 (06:09→20:55)
[2023-02-04] MEDS: ONDANSETRON 4MG 2ML VIAL IV PRN (06:09)
[2023-02-04] MEDS: prednisoLONE ACET 1% OPHTH SUSP 5ML OU SCH (08:28)
[2023-02-04] MEDS: NS 1,000 ML IV SCH ×2 (08:28→20:35)
[2023-02-04] MEDS ORDERED: METOPROLOL 5 MG/5 ML VIAL IV STA (08:43)
[2023-02-04 08:48] LABS: ALBUMIN 2.2 G/DL (3.2-5.2); BILIRUBIN,DIRECT 0.3 MG/DL (<0.4); BILIRUBIN,TOTAL 0.7 MG/DL (0.3-1.2); MB/CK RELATIVE INDEX 3.06 (< OR =4); TOTAL PROTEIN 4.6 G/DL (5.7-8.2)
[2023-02-04 10:46] LABS: CK-MB VALUE MASS 2.5 NG/ML (<3.6)
[2023-02-04 10:48] LABS: MB/CK RELATIVE INDEX 2.33 (< OR =4)
[2023-02-04] MEDS: MORPHINE 2 MG/ML 1ML VIAL IV PRN (12:04)
[2023-02-04 14:23] LABS: HEMATOCRIT 29.6 % (36.0-47.0); HEMOGLOBIN 9.4 g/dl (12.0-15.5); MEAN CORPUSCULAR HEMOGLOBIN 28.5 pg (27.0-33.0); MEAN CORPUSCULAR HGB CONC 31.8 g/dl (32.0-36.5); MEAN CORPUSCULAR VOLUME 89.7 fl (80.0-96.0); PLATELET COUNT, AUTOMATED 166 10^3/uL (150-450); WHITE BLOOD COUNT 6.8 10^3/uL (4.0-10.0)
[2023-02-04 14:50] LABS: BLOOD UREA NITROGEN 12 MG/DL (9-23); CALCIUM LEVEL 7.2 MG/DL (8.3-10.6); CARBON DIOXIDE LEVEL 27 MMOL/L (20-31); CHLORIDE LEVEL 112 MMOL/L (98-107); CREATININE FOR GFR 0.55 MG/DL (0.55-1.30); GLOMERULAR FILTRATION RATE > 60.0 (>32); GLUCOSE, FASTING 116 MG/DL (74-106); MAGNESIUM LEVEL 1.8 MG/DL (1.8-2.4); POTASSIUM SERUM 3.5 MMOL/L (3.5-5.1); SODIUM LEVEL 144 MMOL/L (136-145)
[2023-02-04 15:16] LABS: ATYPICAL LYMPH 7 % (0-5); LYMPHOCYTES 4 % (16-44); MONOCYTES 6 % (0-5); NEUTROPHILS 77 % (28-66); PLATELET ESTIMATE NORMAL (NORMAL)
[2023-02-04 15:17] LABS: HYPOCHROMASIA 1+
[2023-02-04] MEDS: MAG SULF 1GM/100ML (MAG RUN) 1 GM in IV 1 EA IV SCH ×2 (15:33→17:26)
[2023-02-04] MEDS: KCL 10MEQ/100ML SWI (KRUN) 10 MEQ in IV 1 EA IV SCH ×2 (19:45→20:35)
[2023-02-04] MEDS: ENOXAPARIN 40MG/0.4ML SYRINGE (J1650 PER 10MG) SC SCH (20:34)
[2023-02-05 03:39] VITALS: BP 144/74; TEMP 97.8; O2SAT 96
[2023-02-05] MEDS: NS 1,000 ML IV SCH ×2 (04:22→15:59)
[2023-02-05] MEDS: MORPHINE 4 MG/ML 1ML VIAL IV PRN ×2 (04:22→23:24)
[2023-02-05] MEDS: INSULIN LISPRO (NovoLOG) PER UNIT SC SCH ×4 (06:00→23:45)
[2023-02-05 07:12] LABS: BASO % 0.2 % (0.0-1.0); EOS # 0.1 10^3/uL (0.0-0.5); EOS % 1.1 % (0.0-3.0); HEMATOCRIT 30.2 % (36.0-47.0); HEMOGLOBIN 9.8 g/dl (12.0-15.5); LYMPH # 0.9 10^3/uL (1.5-5.0); LYMPH % 19.4 % (24.0-44.0); MEAN CORPUSCULAR HEMOGLOBIN 29.1 pg (27.0-33.0); MEAN CORPUSCULAR HGB CONC 32.5 g/dl (32.0-36.5); MEAN CORPUSCULAR VOLUME 89.6 fl (80.0-96.0); MONO # 0.8 10^3/uL (0.0-0.8); MONO % 18.3 % (2.0-8.0); NEUTROPHILS # 2.7 10^3/uL (1.5-8.5); NEUTROPHILS % 60.3 % (36.0-66.0); PLATELET COUNT, AUTOMATED 200 10^3/uL (150-450); RED BLOOD COUNT 3.37 10^6/uL (4.00-5.40); WHITE BLOOD COUNT 4.4 10^3/uL (4.0-10.0)
[2023-02-05] MEDS ORDERED: METOPROLOL 5 MG/5 ML VIAL IV STA ×3 (07:36→18:26)
[2023-02-05 07:42] LABS: BLOOD UREA NITROGEN 10 MG/DL (9-23); CALCIUM LEVEL 7.5 MG/DL (8.3-10.6); CARBON DIOXIDE LEVEL 26 MMOL/L (20-31); CHLORIDE LEVEL 110 MMOL/L (98-107); CREATININE FOR GFR 0.55 MG/DL (0.55-1.30); GLOMERULAR FILTRATION RATE > 60.0 (>32); GLUCOSE, FASTING 110 MG/DL (74-106); POTASSIUM SERUM 3.6 MMOL/L (3.5-5.1); SODIUM LEVEL 144 MMOL/L (136-145)
[2023-02-05 08:00] VITALS: BP 162/86; TEMP 96.7; O2SAT 96
[2023-02-05] MEDS: prednisoLONE ACET 1% OPHTH SUSP 5ML OU SCH (08:10)
[2023-02-05] MEDS ORDERED: BISACODYL 10MG SUPP PR PRN (08:35)
[2023-02-05] MEDS: PANTOPRAZOLE 40MG VIAL IV SCH (09:41)
[2023-02-05 12:00] VITALS: BP 142/72; TEMP 98.6; O2SAT 95
[2023-02-05 13:41] LABS: ALBUMIN 2.1 G/DL (3.2-5.2); ALKALINE PHOSPHATASE 52 U/L (46-116); ALT/SGPT 13 U/L (7.0-40); AST/SGOT 12 U/L (<34); BILIRUBIN,DIRECT 0.4 MG/DL (<0.4); BILIRUBIN,TOTAL 0.8 MG/DL (0.3-1.2); TOTAL PROTEIN 4.6 G/DL (5.7-8.2)
[2023-02-05] MEDS ORDERED: ISOVUE-370 76% 100ML VIAL As Ordered ONE (15:56)
[2023-02-05] MEDS ORDERED: NS 500 ML IV STA (17:37)
[2023-02-05] MEDS: ONDANSETRON 4MG 2ML VIAL IV PRN (18:42)
[2023-02-05 19:23] VITALS: BP 139/73; TEMP 98; O2SAT 93; O2SAT 94
[2023-02-05] MEDS: ENOXAPARIN 40MG/0.4ML SYRINGE (J1650 PER 10MG) SC SCH (20:14)
[2023-02-05 23:18] VITALS: BP 168/78; TEMP 97.9; O2SAT 93
[2023-02-06 04:13] VITALS: BP 147/81; TEMP 97.5; O2SAT 96
[2023-02-06] MEDS: INSULIN LISPRO (NovoLOG) PER UNIT SC SCH ×4 (05:23→23:35)
[2023-02-06] MEDS: NS 1,000 ML IV SCH (05:23)
[2023-02-06 06:08] LABS: BASO % 0.5 % (0.0-1.0); EOS # 0.1 10^3/uL (0.0-0.5); EOS % 1.2 % (0.0-3.0); HEMATOCRIT 30.1 % (36.0-47.0); HEMOGLOBIN 9.6 g/dl (12.0-15.5); LYMPH % 24.8 % (24.0-44.0); MEAN CORPUSCULAR HEMOGLOBIN 28.5 pg (27.0-33.0); MEAN CORPUSCULAR HGB CONC 31.9 g/dl (32.0-36.5); MEAN CORPUSCULAR VOLUME 89.3 fl (80.0-96.0); MONO # 0.9 10^3/uL (0.0-0.8); MONO % 22.3 % (2.0-8.0); NEUTROPHILS # 2.1 10^3/uL (1.5-8.5); NEUTROPHILS % 49.7 % (36.0-66.0); PLATELET COUNT, AUTOMATED 203 10^3/uL (150-450); RED BLOOD COUNT 3.37 10^6/uL (4.00-5.40); WHITE BLOOD COUNT 4.1 10^3/uL (4.0-10.0)
[2023-02-06 06:31] LABS: BLOOD UREA NITROGEN 9 MG/DL (9-23); CALCIUM LEVEL 7.4 MG/DL (8.3-10.6); CARBON DIOXIDE LEVEL 24 MMOL/L (20-31); CHLORIDE LEVEL 112 MMOL/L (98-107); GLOMERULAR FILTRATION RATE > 60.0 (>32); GLUCOSE, FASTING 96 MG/DL (74-106); MAGNESIUM LEVEL 1.8 MG/DL (1.8-2.4); POTASSIUM SERUM 3.6 MMOL/L (3.5-5.1); SODIUM LEVEL 146 MMOL/L (136-145)
[2023-02-06] MEDS ORDERED: MAG SULF 1GM/100ML (MAG RUN) 1 GM in IV 1 EA IV ONE (07:00)
[2023-02-06 08:42] VITALS: BP 166/78; TEMP 97.8; O2SAT 94
[2023-02-06 08:47] VITALS: O2SAT 93
[2023-02-06] MEDS: PANTOPRAZOLE 40MG VIAL IV SCH (09:40)
[2023-02-06] MEDS: KCL 10MEQ/100ML SWI (KRUN) 10 MEQ in IV 1 EA IV SCH ×2 (09:41→11:54)
[2023-02-06] MEDS: D5W/0.45% SODIUM CHLORIDE 1,000 ML IV SCH ×3 (09:41→23:31)
[2023-02-06] MEDS: BISACODYL 10MG SUPP PR SCH ×3 (09:41→20:02)
[2023-02-06] MEDS: prednisoLONE ACET 1% OPHTH SUSP 5ML OU SCH (09:42)
[2023-02-06] MEDS: ONDANSETRON 4MG 2ML VIAL IV PRN (10:45)
[2023-02-06 12:39] VITALS: BP 150/88; TEMP 97.9; O2SAT 95
[2023-02-06 16:35] VITALS: BP 149/79; TEMP 97.8; O2SAT 99
[2023-02-06 17:46] LABS: BLOOD UREA NITROGEN 8 MG/DL (9-23); CALCIUM LEVEL 7.7 MG/DL (8.3-10.6); CARBON DIOXIDE LEVEL 26 MMOL/L (20-31); CHLORIDE LEVEL 108 MMOL/L (98-107); GLOMERULAR FILTRATION RATE > 60.0 (>32); GLUCOSE, FASTING 137 MG/DL (74-106); POTASSIUM SERUM 3.8 MMOL/L (3.5-5.1); SODIUM LEVEL 146 MMOL/L (136-145)
[2023-02-06] MEDS: ENOXAPARIN 40MG/0.4ML SYRINGE (J1650 PER 10MG) SC SCH (19:56)
[2023-02-06] MEDS: MORPHINE 4 MG/ML 1ML VIAL IV PRN (19:57)
[2023-02-06 20:29] VITALS: BP 140/86; TEMP 98.6; O2SAT 94
[2023-02-07] VITALS (8 sets, daily range): BP systolic 140–174; BP diastolic 71–83; TEMP 96.7–98.9; O2SAT 93–99
[2023-02-07 00:46] LABS: BLOOD UREA NITROGEN 6 MG/DL (9-23); CALCIUM LEVEL 7.2 MG/DL (8.3-10.6); CARBON DIOXIDE LEVEL 27 MMOL/L (20-31); CHLORIDE LEVEL 111 MMOL/L (98-107); CREATININE FOR GFR 0.49 MG/DL (0.55-1.30); GLOMERULAR FILTRATION RATE > 60.0 (>32); GLUCOSE, FASTING 150 MG/DL (74-106); POTASSIUM SERUM 3.6 MMOL/L (3.5-5.1); SODIUM LEVEL 145 MMOL/L (136-145)
[2023-02-07] MEDS: MORPHINE 4 MG/ML 1ML VIAL IV PRN ×3 (03:13→23:12)
[2023-02-07] MEDS: ONDANSETRON 4MG 2ML VIAL IV PRN (03:47)
[2023-02-07 04:56] LABS: BASO % 0.2 % (0.0-1.0); EOS # 0.2 10^3/uL (0.0-0.5); EOS % 3.5 % (0.0-3.0); HEMATOCRIT 30.1 % (36.0-47.0); HEMOGLOBIN 9.8 g/dl (12.0-15.5); LYMPH # 0.9 10^3/uL (1.5-5.0); LYMPH % 21.6 % (24.0-44.0); MEAN CORPUSCULAR HEMOGLOBIN 29.2 pg (27.0-33.0); MEAN CORPUSCULAR HGB CONC 32.6 g/dl (32.0-36.5); MEAN CORPUSCULAR VOLUME 89.6 fl (80.0-96.0); MONO # 0.9 10^3/uL (0.0-0.8); MONO % 20.5 % (2.0-8.0); NEUTROPHILS # 2.2 10^3/uL (1.5-8.5); NEUTROPHILS % 52.3 % (36.0-66.0); PLATELET COUNT, AUTOMATED 239 10^3/uL (150-450); RED BLOOD COUNT 3.36 10^6/uL (4.00-5.40); WHITE BLOOD COUNT 4.3 10^3/uL (4.0-10.0)
[2023-02-07 05:24] LABS: BLOOD UREA NITROGEN 5 MG/DL (9-23); CALCIUM LEVEL 7.5 MG/DL (8.3-10.6); CARBON DIOXIDE LEVEL 31 MMOL/L (20-31); CHLORIDE LEVEL 109 MMOL/L (98-107); CREATININE FOR GFR 0.52 MG/DL (0.55-1.30); GLOMERULAR FILTRATION RATE > 60.0 (>32); GLUCOSE, FASTING 179 MG/DL (74-106); MAGNESIUM LEVEL 1.7 MG/DL (1.8-2.4); POTASSIUM SERUM 3.6 MMOL/L (3.5-5.1); SODIUM LEVEL 146 MMOL/L (136-145)
[2023-02-07] MEDS: INSULIN LISPRO (NovoLOG) PER UNIT SC SCH ×3 (05:31→18:02)
[2023-02-07] MEDS ORDERED: MAGNESIUM OXIDE 400MG TAB (MAG-OX) PO ONE (06:10)
[2023-02-07] MEDS ORDERED: MAG SULF 1GM/100ML (MAG RUN) 1 GM in IV 1 EA IV ONE (06:30)
[2023-02-07] MEDS: KCL 10MEQ/100ML SWI (KRUN) 10 MEQ in IV 1 EA IV SCH ×2 (08:32→10:41)
[2023-02-07] MEDS: PANTOPRAZOLE 40MG VIAL IV SCH (10:41)
[2023-02-07] MEDS: BISACODYL 10MG SUPP PR SCH ×3 (10:41→20:10)
[2023-02-07] MEDS: D5W/0.45% SODIUM CHLORIDE 1,000 ML IV SCH ×2 (10:42→18:46)
[2023-02-07] MEDS: prednisoLONE ACET 1% OPHTH SUSP 5ML OU SCH (10:42)
[2023-02-07] MEDS: ENOXAPARIN 40MG/0.4ML SYRINGE (J1650 PER 10MG) SC SCH (20:10)
[2023-02-08] VITALS (11 sets, daily range): BP systolic 125–155; BP diastolic 60–89; TEMP 97.3–98.7; O2SAT 88–94
[2023-02-08] MEDS: D5W/0.45% SODIUM CHLORIDE 1,000 ML IV SCH (02:10)
[2023-02-08 05:02] LABS: BASO % 0.2 % (0.0-1.0); EOS # 0.2 10^3/uL (0.0-0.5); EOS % 2.8 % (0.0-3.0); HEMATOCRIT 27.7 % (36.0-47.0); HEMOGLOBIN 9.2 g/dl (12.0-15.5); LYMPH # 1.1 10^3/uL (1.5-5.0); LYMPH % 20.2 % (24.0-44.0); MEAN CORPUSCULAR HEMOGLOBIN 28.7 pg (27.0-33.0); MEAN CORPUSCULAR HGB CONC 33.2 g/dl (32.0-36.5); MEAN CORPUSCULAR VOLUME 86.3 fl (80.0-96.0); MONO # 0.9 10^3/uL (0.0-0.8); MONO % 16.1 % (2.0-8.0); NEUTROPHILS # 3.4 10^3/uL (1.5-8.5); NEUTROPHILS % 59.5 % (36.0-66.0); PLATELET COUNT, AUTOMATED 250 10^3/uL (150-450); RED BLOOD COUNT 3.21 10^6/uL (4.00-5.40); WHITE BLOOD COUNT 5.7 10^3/uL (4.0-10.0)
[2023-02-08 05:43] LABS: BLOOD UREA NITROGEN < 5 MG/DL (9-23); CALCIUM LEVEL 7.4 MG/DL (8.3-10.6); CARBON DIOXIDE LEVEL 31 MMOL/L (20-31); CHLORIDE LEVEL 104 MMOL/L (98-107); CREATININE FOR GFR 0.49 MG/DL (0.55-1.30); GLOMERULAR FILTRATION RATE > 60.0 (>32); GLUCOSE, FASTING 168 MG/DL (74-106); MAGNESIUM LEVEL 1.6 MG/DL (1.8-2.4); POTASSIUM SERUM 3.1 MMOL/L (3.5-5.1); SODIUM LEVEL 140 MMOL/L (136-145)
[2023-02-08] MEDS: INSULIN LISPRO (NovoLOG) PER UNIT SC SCH ×5 (06:00→23:49)
[2023-02-08] MEDS: MAG SULF 1GM/100ML (MAG RUN) 1 GM in IV 1 EA IV SCH ×2 (06:04→08:19)
[2023-02-08] MEDS: KCL 10MEQ/100ML SWI (KRUN) 10 MEQ in IV 1 EA IV SCH ×2 (09:00→09:15)
[2023-02-08] MEDS ORDERED: GASTROGRAFIN SOLUTION 30ML As Ordered ONE (09:07)
[2023-02-08] MEDS: PANTOPRAZOLE 40MG VIAL IV SCH (09:15)
[2023-02-08] MEDS: prednisoLONE ACET 1% OPHTH SUSP 5ML OU SCH (09:16)
[2023-02-08] MEDS: BISACODYL 10MG SUPP PR SCH ×3 (09:16→20:12)
[2023-02-08] MEDS ORDERED: LIDOCAINE 1% MDV 20ML VIAL As Ordered ONE (10:06)
[2023-02-08] MEDS ORDERED: FUROSEMIDE 40MG/4ML VIAL IV ONE (12:00)
[2023-02-08] MEDS: ONDANSETRON 4MG 2ML VIAL IV PRN ×2 (13:52→23:47)
[2023-02-08] MEDS: KCL 20MEQ IN 100ML SWI (KRUN) 20 MEQ in IV 1 EA IV SCH ×4 (13:52→15:12)
[2023-02-08] MEDS ORDERED: SODIUM CHLORIDE 0.9% INJ 10 ML SYR IV PRN (14:35)
[2023-02-08] MEDS: MORPHINE 4 MG/ML 1ML VIAL IV PRN (15:11)
[2023-02-08] MEDS: SODIUM CHLORIDE 0.9% INJ 10 ML SYR IV SCH (18:00)
[2023-02-08] MEDS ORDERED: AMINO AC/ELECTROLYTE/DEX/CALC 2,566 ML IV SCH (18:00)
[2023-02-08] MEDS: PIPERACILLIN/TAZOBACTAM SOD 3.375 GM in D5W MINI-BAG PLUS 50 ML IV SCH ×2 (18:46→23:49)
[2023-02-08] MEDS: ENOXAPARIN 40MG/0.4ML SYRINGE (J1650 PER 10MG) SC SCH (20:12)
[2023-02-08] MEDS: MORPHINE 2 MG/ML 1ML VIAL IV PRN (23:48)
[2023-02-09] VITALS (20 sets, daily range): BP systolic 124–159; BP diastolic 58–84; TEMP 97.3–98.9; O2SAT 93–97
[2023-02-09] MEDS ORDERED: METOPROLOL 5 MG/5 ML VIAL IV ONE (04:20)
[2023-02-09] MEDS: PIPERACILLIN/TAZOBACTAM SOD 3.375 GM in D5W MINI-BAG PLUS 50 ML IV SCH ×4 (05:43→23:37)
[2023-02-09] MEDS: SODIUM CHLORIDE 0.9% INJ 10 ML SYR IV SCH ×2 (05:44→17:25)
[2023-02-09] MEDS: INSULIN LISPRO (NovoLOG) PER UNIT SC SCH ×4 (05:44→20:21)
[2023-02-09 07:06] LABS: BASO % 0.3 % (0.0-1.0); EOS # 0.1 10^3/uL (0.0-0.5); EOS % 1.4 % (0.0-3.0); HEMATOCRIT 26.8 % (36.0-47.0); HEMOGLOBIN 8.9 g/dl (12.0-15.5); LYMPH % 12.3 % (24.0-44.0); MEAN CORPUSCULAR HEMOGLOBIN 28.6 pg (27.0-33.0); MEAN CORPUSCULAR HGB CONC 33.2 g/dl (32.0-36.5); MEAN CORPUSCULAR VOLUME 86.2 fl (80.0-96.0); MONO # 0.7 10^3/uL (0.0-0.8); MONO % 9.3 % (2.0-8.0); NEUTROPHILS # 5.9 10^3/uL (1.5-8.5); NEUTROPHILS % 75.1 % (36.0-66.0); PLATELET COUNT, AUTOMATED 240 10^3/uL (150-450); RED BLOOD COUNT 3.11 10^6/uL (4.00-5.40); WHITE BLOOD COUNT 7.9 10^3/uL (4.0-10.0)
[2023-02-09 07:54] LABS: ALBUMIN 1.8 G/DL (3.2-5.2); ALKALINE PHOSPHATASE 48 U/L (46-116); ALT/SGPT 15 U/L (7.0-40); AST/SGOT 19 U/L (<34); BILIRUBIN,TOTAL 0.6 MG/DL (0.3-1.2); BLOOD UREA NITROGEN 6 MG/DL (9-23); CALCIUM LEVEL 7.1 MG/DL (8.3-10.6); CARBON DIOXIDE LEVEL 34 MMOL/L (20-31); CHLORIDE LEVEL 101 MMOL/L (98-107); CREATININE FOR GFR 0.52 MG/DL (0.55-1.30); GLOMERULAR FILTRATION RATE > 60.0 (>32); GLUCOSE, FASTING 201 MG/DL (74-106); POTASSIUM SERUM 3.1 MMOL/L (3.5-5.1); SODIUM LEVEL 139 MMOL/L (136-145); TOTAL PROTEIN 4.1 G/DL (5.7-8.2)
[2023-02-09] MEDS: PANTOPRAZOLE 40MG VIAL IV SCH (08:38)
[2023-02-09] MEDS: BISACODYL 10MG SUPP PR SCH ×3 (08:38→20:21)
[2023-02-09] MEDS: prednisoLONE ACET 1% OPHTH SUSP 5ML OU SCH (08:39)
[2023-02-09 09:29] LABS: MAGNESIUM LEVEL 1.7 MG/DL (1.8-2.4)
[2023-02-09] MEDS: KCL 20MEQ IN 100ML SWI (KRUN) 20 MEQ in IV 1 EA IV SCH ×4 (10:10→11:00)
[2023-02-09] MEDS: atenoloL 50 MG TAB PO SCH (12:04)
[2023-02-09] MEDS: MAG SULF 1GM/100ML (MAG RUN) 100 ML IV SCH ×2 (13:39→15:08)
[2023-02-09] MEDS ORDERED: MULTIVITAMIN -ADULT INJECTION 10 ML, ZINC/COPPER/MANGANESE/SELENIUM 1 ML in AMINO AC/EL... IV SCH (18:00)
[2023-02-09] MEDS: ENOXAPARIN 40MG/0.4ML SYRINGE (J1650 PER 10MG) SC SCH (20:22)
[2023-02-10] VITALS (13 sets, daily range): BP systolic 130–144; BP diastolic 62–72; TEMP 97.2–99.4; O2SAT 93–96
[2023-02-10] MEDS: PIPERACILLIN/TAZOBACTAM SOD 3.375 GM in D5W MINI-BAG PLUS 50 ML IV SCH ×2 (05:42→12:09)
[2023-02-10] MEDS: SODIUM CHLORIDE 0.9% INJ 10 ML SYR IV SCH ×2 (05:43→17:44)
[2023-02-10 06:23] LABS: BASO % 0.2 % (0.0-1.0); EOS # 0.3 10^3/uL (0.0-0.5); HEMOGLOBIN 9.2 g/dl (12.0-15.5); LYMPH # 1.2 10^3/uL (1.5-5.0); LYMPH % 14.7 % (24.0-44.0); MEAN CORPUSCULAR HEMOGLOBIN 29.2 pg (27.0-33.0); MEAN CORPUSCULAR HGB CONC 34.1 g/dl (32.0-36.5); MEAN CORPUSCULAR VOLUME 85.7 fl (80.0-96.0); MONO # 0.9 10^3/uL (0.0-0.8); MONO % 11.1 % (2.0-8.0); NEUTROPHILS # 5.8 10^3/uL (1.5-8.5); NEUTROPHILS % 69.2 % (36.0-66.0); PLATELET COUNT, AUTOMATED 257 10^3/uL (150-450); RED BLOOD COUNT 3.15 10^6/uL (4.00-5.40); WHITE BLOOD COUNT 8.4 10^3/uL (4.0-10.0)
[2023-02-10 06:51] LABS: BLOOD UREA NITROGEN 6 MG/DL (9-23); CALCIUM LEVEL 7.3 MG/DL (8.3-10.6); CARBON DIOXIDE LEVEL 33 MMOL/L (20-31); CHLORIDE LEVEL 98 MMOL/L (98-107); CREATININE FOR GFR 0.54 MG/DL (0.55-1.30); GLOMERULAR FILTRATION RATE > 60.0 (>32); GLUCOSE, FASTING 175 MG/DL (74-106); POTASSIUM SERUM 3.3 MMOL/L (3.5-5.1); SODIUM LEVEL 136 MMOL/L (136-145)
[2023-02-10] MEDS: prednisoLONE ACET 1% OPHTH SUSP 5ML OU SCH (08:25)
[2023-02-10] MEDS: INSULIN LISPRO (NovoLOG) PER UNIT SC SCH ×4 (08:25→21:00)
[2023-02-10] MEDS: atenoloL 50 MG TAB PO SCH (08:25)
[2023-02-10] MEDS: PANTOPRAZOLE 40MG VIAL IV SCH (08:25)
[2023-02-10] MEDS: BISACODYL 10MG SUPP PR SCH (08:26)
[2023-02-10] MEDS ORDERED: POTASSIUM CHLORIDE 10MEQ SR TABLET PO ONE (09:00)
[2023-02-10] MEDS: ENOXAPARIN 40MG/0.4ML SYRINGE (J1650 PER 10MG) SC SCH (20:28)
[2023-02-11] VITALS (8 sets, daily range): BP systolic 134–152; BP diastolic 62–71; TEMP 97.8–98.5; O2SAT 84–97
[2023-02-11] MEDS: ONDANSETRON 4MG 2ML VIAL IV PRN (00:46)
[2023-02-11] MEDS: SODIUM CHLORIDE 0.9% INJ 10 ML SYR IV SCH ×2 (05:43→18:01)
[2023-02-11 06:28] LABS: BASO % 0.3 % (0.0-1.0); EOS # 0.2 10^3/uL (0.0-0.5); EOS % 2.4 % (0.0-3.0); HEMATOCRIT 26.3 % (36.0-47.0); HEMOGLOBIN 8.6 g/dl (12.0-15.5); LYMPH # 1.5 10^3/uL (1.5-5.0); LYMPH % 19.8 % (24.0-44.0); MEAN CORPUSCULAR HEMOGLOBIN 28.2 pg (27.0-33.0); MEAN CORPUSCULAR HGB CONC 32.7 g/dl (32.0-36.5); MEAN CORPUSCULAR VOLUME 86.2 fl (80.0-96.0); MONO # 0.9 10^3/uL (0.0-0.8); MONO % 11.3 % (2.0-8.0); NEUTROPHILS # 4.9 10^3/uL (1.5-8.5); PLATELET COUNT, AUTOMATED 263 10^3/uL (150-450); RED BLOOD COUNT 3.05 10^6/uL (4.00-5.40); WHITE BLOOD COUNT 7.6 10^3/uL (4.0-10.0)
[2023-02-11 06:56] LABS: BLOOD UREA NITROGEN 7 MG/DL (9-23); CALCIUM LEVEL 7.5 MG/DL (8.3-10.6); CARBON DIOXIDE LEVEL 31 MMOL/L (20-31); CHLORIDE LEVEL 102 MMOL/L (98-107); CREATININE FOR GFR 0.56 MG/DL (0.55-1.30); GLOMERULAR FILTRATION RATE > 60.0 (>32); GLUCOSE, FASTING 114 MG/DL (74-106); MAGNESIUM LEVEL 1.8 MG/DL (1.8-2.4); POTASSIUM SERUM 3.8 MMOL/L (3.5-5.1); SODIUM LEVEL 138 MMOL/L (136-145)
[2023-02-11] MEDS: INSULIN LISPRO (NovoLOG) PER UNIT SC SCH ×4 (07:30→20:05)
[2023-02-11] MEDS ORDERED: BISACODYL 10MG SUPP PR PRN (08:00)
[2023-02-11] MEDS: PANTOPRAZOLE 40MG VIAL IV SCH (09:55)
[2023-02-11] MEDS: atenoloL 50 MG TAB PO SCH (09:56)
[2023-02-11] MEDS ORDERED: ACETAMINOPHEN TAB 650MG DOSE (2X325MG) PO PRN (10:00)
[2023-02-11] MEDS: prednisoLONE ACET 1% OPHTH SUSP 5ML OU SCH (10:01)
[2023-02-11] MEDS ORDERED: atenoloL 25 MG TAB PO ONE (10:25)
[2023-02-11 10:47] LABS: IRON (FE) 11 UG/DL (50-170); PERCENT SATURATION 4.9 % (13.2-45.0); TOTAL IRON BINDING CAPACITY 226 UG/DL (250-425)
[2023-02-11 10:49] LABS: FERRITIN 61.3 NG/ML (7.3-270.7)
[2023-02-11 10:50] LABS: VITAMIN B12 LEVEL 210 PG/ML (211-911)
[2023-02-11] MEDS ORDERED: FERRIC CARBOXYMALTOSE INJ 750 MG, VIAL MATE ADAPTER 1 EACH in NS 250 ML IV ONE (17:00)
[2023-02-11] MEDS: CYANOCOBALAMIN 1,000MCG/ML 1ML VIAL IM SCH (18:00)
[2023-02-11] MEDS: ENOXAPARIN 40MG/0.4ML SYRINGE (J1650 PER 10MG) SC SCH (20:05)
[2023-02-12 05:07] VITALS: BP 103/68; TEMP 98.8; O2SAT 93
[2023-02-12] MEDS: SODIUM CHLORIDE 0.9% INJ 10 ML SYR IV SCH (05:09)
[2023-02-12 06:08] LABS: HEMATOCRIT 26.1 % (36.0-47.0); HEMOGLOBIN 8.7 g/dl (12.0-15.5); MEAN CORPUSCULAR HEMOGLOBIN 28.8 pg (27.0-33.0); MEAN CORPUSCULAR HGB CONC 33.3 g/dl (32.0-36.5); MEAN CORPUSCULAR VOLUME 86.4 fl (80.0-96.0); PLATELET COUNT, AUTOMATED 294 10^3/uL (150-450); RED BLOOD COUNT 3.02 10^6/uL (4.00-5.40); WHITE BLOOD COUNT 6.7 10^3/uL (4.0-10.0)
[2023-02-12 06:32] LABS: BLOOD UREA NITROGEN 7 MG/DL (9-23); CALCIUM LEVEL 7.9 MG/DL (8.3-10.6); CARBON DIOXIDE LEVEL 31 MMOL/L (20-31); CHLORIDE LEVEL 105 MMOL/L (98-107); CREATININE FOR GFR 0.56 MG/DL (0.55-1.30); GLOMERULAR FILTRATION RATE > 60.0 (>32); GLUCOSE, FASTING 157 MG/DL (74-106); MAGNESIUM LEVEL 1.7 MG/DL (1.8-2.4); POTASSIUM SERUM 3.8 MMOL/L (3.5-5.1); SODIUM LEVEL 142 MMOL/L (136-145)
[2023-02-12 06:58] LABS: ANISOCYTOSIS 1+; ATYPICAL LYMPH 2 % (0-5); EOSINOPHILS 3 % (0-3); LYMPHOCYTES 18 % (16-44); MONOCYTES 12 % (0-5); NEUTROPHILS 65 % (28-66); PLATELET ESTIMATE NORMAL (NORMAL)
[2023-02-12] MEDS: INSULIN LISPRO (NovoLOG) PER UNIT SC SCH ×2 (08:21→12:00)
[2023-02-12] MEDS: CYANOCOBALAMIN 1,000MCG/ML 1ML VIAL IM SCH (08:22)
[2023-02-12] MEDS: prednisoLONE ACET 1% OPHTH SUSP 5ML OU SCH (08:24)
[2023-02-12] MEDS ORDERED: MAGNESIUM OXIDE 400MG TAB (MAG-OX) PO SCH (09:00)
[2023-02-12] MEDS ORDERED: atenoloL 25 MG TAB PO SCH (09:00)
[2023-02-12] MEDS ORDERED: VALSARTAN 80 MG TAB (DIOVAN) PO SCH (09:00)
[2023-02-12 09:36] VITALS: O2SAT 96
[2023-02-12] MEDS ORDERED: MAGN400T2 PO (10:00)
[2023-02-12] MEDS ORDERED: B-12100021 PO (10:00)
[2023-02-12] MEDS ORDERED: MIRA3350 PO (10:00)
[2023-02-12] MEDS ORDERED: BISA10SU PR (10:00)
[2023-02-12] MEDS ORDERED: ATEN50TA2 PO (10:00)
[2023-02-12 11:04] VITALS: BP 148/77
== END 2023-02-12 12:56 | disposition home health service (06) | DRG 329 ==
LOC: M ED 01:24 → EDBD 01:24 → EEVIPCON 10:09 → M ED INP 10:09 → ENRESERVTM 10:31 → ENRESERVDT 10:31 → M PCU 11:34 → M MS4PR 02-10 16:20
PROVIDERS: ADMIT Internal Medicine; ATTEND Student in an Organized Health Care Education/Training Program
PROC: 0DBK0ZZ Excision of Ascending Colon, Open Approach (ICD-10-PCS; principal; 2023-02-02 08:30)
PROC: B246ZZZ Ultrasonography of Right and Left Heart (ICD-10-PCS; 2023-02-05)
PROC: 02HV33Z Insertion of Infusion Device into Superior Vena Cava, Percutaneous Approach (ICD-10-PCS; 2023-02-08)
PROC: 3E0436Z Introduction of Nutritional Substance into Central Vein, Percutaneous Approach (ICD-10-PCS; 2023-02-08)
DX: C18.2 Malignant neoplasm of ascending colon (principal); J96.01 Acute respiratory failure with hypoxia; J98.11 Atelectasis; E87.0 Hyperosmolality and hypernatremia; C77.2 Secondary and unspecified malignant neoplasm of intra-abdominal lymph nodes; K56.7 Ileus, unspecified; E87.1 Hypo-osmolality and hyponatremia; J90 Pleural effusion, not elsewhere classified; R92.2 Inconclusive mammogram; N63.11 Unspecified lump in the right breast, upper outer quadrant; I10 Essential (primary) hypertension; D50.9 Iron deficiency anemia, unspecified; E87.6 Hypokalemia; E83.42 Hypomagnesemia; K63.89 Other specified diseases of intestine; E03.9 Hypothyroidism, unspecified; Z86.16 Personal history of COVID-19; Z87.81 Personal history of (healed) traumatic fracture; Z98.41 Cataract extraction status, right eye; Z98.42 Cataract extraction status, left eye; Z96.1 Presence of intraocular lens; Z79.52 Long term (current) use of systemic steroids; Z79.899 Other long term (current) drug therapy

== ENCOUNTER → 2023-09-05 | Outpatient (REF) | payer OTHER, MEDICAID ==
[~2023-09-05] MED LIST changes: +B-12100021 PO; +BISA10SU PR; +CAPE1TAB2 PO; +CYAN-1 PO; +DOCU100C16 PO; +MAGN400T2 PO; +MED REC COMMENT; +MIRA3350 PO; +SENN-193 PO; +VALS1TAB66 PO
[2023-09-05 17:10] LABS: BASO % 0.5 % (0.0-1.0); EOS # 0.2 10^3/uL (0.0-0.5); EOS % 3.3 % (0.0-3.0); HEMATOCRIT 38.8 % (36.0-47.0); HEMOGLOBIN 13.5 g/dl (12.0-15.5); LYMPH # 2.4 10^3/uL (1.5-5.0); LYMPH % 39.1 % (24.0-44.0); MEAN CORPUSCULAR HEMOGLOBIN 35.8 pg (27.0-33.0); MEAN CORPUSCULAR HGB CONC 34.8 g/dl (32.0-36.5); MEAN CORPUSCULAR VOLUME 102.9 fl (80.0-96.0); MONO # 0.6 10^3/uL (0.0-0.8); MONO % 9.4 % (2.0-8.0); NEUTROPHILS # 2.9 10^3/uL (1.5-8.5); NEUTROPHILS % 47.5 % (36.0-66.0); PLATELET COUNT, AUTOMATED 166 10^3/uL (150-450); RED BLOOD COUNT 3.77 10^6/uL (4.00-5.40); WHITE BLOOD COUNT 6.1 10^3/uL (4.0-10.0)
[2023-09-05 17:13] LABS: ALBUMIN 3.7 G/DL (3.2-5.2); ALKALINE PHOSPHATASE 119 U/L (46-116); ALT/SGPT 26 U/L (7.0-40); AST/SGOT 17 U/L (<34); BILIRUBIN,TOTAL 1.5 MG/DL (0.3-1.2); BLOOD UREA NITROGEN 11 MG/DL (9-23); CALCIUM LEVEL 10.1 MG/DL (8.3-10.6); CARBON DIOXIDE LEVEL 28 MMOL/L (20-31); CHLORIDE LEVEL 107 MMOL/L (98-107); CHOLESTEROL LEVEL 157 MG/DL (<200); CHOLESTEROL RISK RATIO 3.57 (<5); CREATININE FOR GFR 0.68 MG/DL (0.55-1.30); GLOMERULAR FILTRATION RATE > 60.0 (>32); GLUCOSE, FASTING 147 MG/DL (74-106); HDL CHOLESTEROL 43.9 MG/DL (>40); LDL CHOLESTEROL 61.1 MG/DL (<100); NON-HDL-C 113.1 MG/DL; POTASSIUM SERUM 4.6 MMOL/L (3.5-5.1); SODIUM LEVEL 141 MMOL/L (136-145); TOTAL PROTEIN 6.8 G/DL (5.7-8.2); TRIGLYCERIDES LEVEL 260 MG/DL (<150)
[2023-09-05 17:15] LABS: FREE T4 1.32 NG/DL (0.89-1.76); THYROID STIMULATING HORMONE 3.171 uIU/ML (0.55-4.78)
[2023-09-05 17:28] LABS: HEMOGLOBIN A1c 6.4 % (4.0-6.0)
== END ==
LOC: M SFHCCLAY 10:17
PROVIDERS: ATTEND Nurse Practitioner Family
DX: Z00.00 Encounter for general adult medical examination without abnormal findings (principal); C18.9 Malignant neoplasm of colon, unspecified; E11.69 Type 2 diabetes mellitus with other specified complication; J44.9 Chronic obstructive pulmonary disease, unspecified; E03.9 Hypothyroidism, unspecified; I10 Essential (primary) hypertension; E78.5 Hyperlipidemia, unspecified

== ENCOUNTER → 2023-09-26 | Outpatient (CLI) | payer OTHER, MEDICAID | LOC: M WHC 07:24 | PROVIDERS: ATTEND Nurse Practitioner Family | DX: R17 Unspecified jaundice (principal); C18.9 Malignant neoplasm of colon, unspecified ==

== ENCOUNTER 2023-09-28 23:28 | Emergency (ER) | payer OTHER, MEDICAID ==
[~2023-09-28] VITALS: Ht 167.6 cm; Wt 80.0 kg
[2023-09-29] MEDS: ONDANSETRON 4MG 2ML VIAL IV ONE (01:40)
[2023-09-29] MEDS: NS 1,000 ML IV ONE (01:58)
[2023-09-29 02:25] LABS: BASO % 0.6 % (0.0-1.0); EOS # 0.1 10^3/uL (0.0-0.5); EOS % 1.3 % (0.0-3.0); HEMATOCRIT 37.2 % (36.0-47.0); LYMPH # 1.6 10^3/uL (1.5-5.0); LYMPH % 23.3 % (24.0-44.0); MEAN CORPUSCULAR HEMOGLOBIN 34.3 pg (27.0-33.0); MEAN CORPUSCULAR HGB CONC 34.9 g/dl (32.0-36.5); MEAN CORPUSCULAR VOLUME 98.2 fl (80.0-96.0); MONO # 0.7 10^3/uL (0.0-0.8); MONO % 9.8 % (2.0-8.0); NEUTROPHILS # 4.4 10^3/uL (1.5-8.5); NEUTROPHILS % 64.6 % (36.0-66.0); PLATELET COUNT, AUTOMATED 145 10^3/uL (150-450); RED BLOOD COUNT 3.79 10^6/uL (4.00-5.40); WHITE BLOOD COUNT 6.7 10^3/uL (4.0-10.0)
[2023-09-29 02:50] LABS: BLOOD UREA NITROGEN 14 MG/DL (9-23); CALCIUM LEVEL 9.3 MG/DL (8.3-10.6); CARBON DIOXIDE LEVEL 23 MMOL/L (20-31); CHLORIDE LEVEL 108 MMOL/L (98-107); CREATININE FOR GFR 0.62 MG/DL (0.55-1.30); GLOMERULAR FILTRATION RATE > 60.0 (>32); GLUCOSE, FASTING 173 MG/DL (74-106); POTASSIUM SERUM 3.9 MMOL/L (3.5-5.1); SODIUM LEVEL 139 MMOL/L (136-145)
[2023-09-29] MEDS: ACETAMINOPHEN TAB 650MG DOSE (2X325MG) PO ONE (07:16)
[2023-09-29] MEDS: methocarbamoL 500 MG TAB PO ONE (07:16)
[2023-09-29] MEDS: LIDOCAINE 5% (LIDODERM) PATCH TD ONE (07:17)
[2023-09-29] MEDS ORDERED: METH-1164 PO (08:05)
[2023-09-29] MEDS ORDERED: LIDO5DIS41 TD (08:05)
[2023-09-29 08:23] VITALS: BP 126/60; TEMP 97.9; O2SAT 92
== END 2023-09-29 08:26 | disposition home or self-care (01) ==
LOC: M ED 23:28 → EDBD 23:28 → M ED 09-29 08:26
DX: M62.830 Muscle spasm of back (principal); M54.50 Low back pain, unspecified; E11.9 Type 2 diabetes mellitus without complications; I10 Essential (primary) hypertension; C18.9 Malignant neoplasm of colon, unspecified; Z87.891 Personal history of nicotine dependence; Z79.52 Long term (current) use of systemic steroids; Z79.84 Long term (current) use of oral hypoglycemic drugs; Z79.899 Other long term (current) drug therapy
CPT/HCPCS: 74176; 80048; 81001; 85025; 87086; 96361; 96374; 99284; J2405

== ENCOUNTER → 2024-03-24 | Outpatient (CLI) | payer OTHER, MEDICAID ==
[~2024-03-24] MED LIST changes: +GASTROGRAFIN SOLUTION 30ML As Ordered ONE; +ISOVUE-370 76% 100ML VIAL As Ordered ONE; +LIDO5DIS41 TD; +METH-1164 PO
== END ==
LOC: M RAD 14:51
PROVIDERS: ATTEND Internal Medicine Medical Oncology
DX: C18.9 Malignant neoplasm of colon, unspecified (principal)
CPT/HCPCS: 71260; 74177; Q9967

== ENCOUNTER 2024-03-31 07:50 | Day surgery (SDC) | payer OTHER, MEDICAID ==
[~2024-03-31] VITALS: Ht 172.7 cm; Wt 78.7 kg
[~2024-03-31 07:50] MED LIST changes: -GASTROGRAFIN SOLUTION 30ML As Ordered ONE; -ISOVUE-370 76% 100ML VIAL As Ordered ONE
[2024-03-31] MEDS ORDERED: LIDOCAINE 2% 100MG/5ML SDV (FOR ANES.) As Ordered ONE (09:01)
[2024-03-31] MEDS ORDERED: propofoL 200 MG/20 ML VIAL As Ordered ONE (09:01)
[2024-03-31] MEDS ORDERED: ePHEDrine SULFATE 25 MG/5 ML(5MG/ML) SYRINGE As Ordered ONE (09:02)
[2024-03-31] MEDS ORDERED: PHENYLephrine 500MCG 5ML (100MCG/ML) SYRINGE As Ordered ONE (09:02)
[2024-03-31 09:20] VITALS: TEMP 97.6
[2024-03-31 09:43] VITALS: BP 140/65; O2SAT 96
== END 2024-03-31 10:52 | disposition home or self-care (01) ==
LOC: M OPP 07:50
PROVIDERS: ATTEND Internal Medicine Gastroenterology
DX: Z12.11 Encounter for screening for malignant neoplasm of colon (principal); D12.5 Benign neoplasm of sigmoid colon; D12.3 Benign neoplasm of transverse colon; K56.690 Other partial intestinal obstruction; K57.30 Diverticulosis of large intestine without perforation or abscess without bleeding; Z85.038 Personal history of other malignant neoplasm of large intestine; Z98.0 Intestinal bypass and anastomosis status; Z90.49 Acquired absence of other specified parts of digestive tract; Z87.19 Personal history of other diseases of the digestive system; I10 Essential (primary) hypertension; Z79.899 Other long term (current) drug therapy; Z90.710 Acquired absence of both cervix and uterus; Z90.89 Acquired absence of other organs
CPT/HCPCS: 45380; 45381; 45385; 88305; J2371

== ENCOUNTER 2024-05-19 06:09 | Inpatient (IN) | payer OTHER, MEDICAID ==
[~2024-05-19] VITALS: Ht 172.7 cm; Wt 78.5 kg
[~2024-05-19 06:09] MED LIST changes: +UNRESOLVED CLARIFICATION ENTRY XX SCH
[2024-05-19] MEDS ORDERED: NS (Normal Saline) 0.9% 1,000 ML IV SCH (06:50)
[2024-05-19 06:52] LABS: HEMATOCRIT 41.6 % (36.0-47.0); MEAN CORPUSCULAR HEMOGLOBIN 30.4 pg (27.0-33.0); MEAN CORPUSCULAR HGB CONC 33.7 g/dl (32.0-36.5); MEAN CORPUSCULAR VOLUME 90.2 fl (80.0-96.0); PLATELET COUNT, AUTOMATED 198 10^3/uL (150-450); RED BLOOD COUNT 4.61 10^6/uL (4.00-5.40); WHITE BLOOD COUNT 6.4 10^3/uL (4.0-10.0)
[2024-05-19] MEDS ORDERED: METRONIDAZOLE IV ONE (07:00)
[2024-05-19] MEDS: GABAPENTIN 300 MG CAP PO ONE (07:12)
[2024-05-19] MEDS: ACETAMINOPHEN 500 MG TAB PO ONE (07:12)
[2024-05-19] MEDS: ALVIMOPAN 12 MG CAPSULE (ENTEREG) PO ONE (07:12)
[2024-05-19 07:22] LABS: ALBUMIN 4.2 G/DL (3.2-5.2); ALKALINE PHOSPHATASE 86 U/L (35-104); ALT/SGPT 27 U/L (7.0-40); AST/SGOT 26 U/L (<34); BILIRUBIN,TOTAL 1.7 MG/DL (0.3-1.2); BLOOD UREA NITROGEN 12 MG/DL (9-23); CALCIUM LEVEL 9.6 MG/DL (8.3-10.6); CARBON DIOXIDE LEVEL 26 MMOL/L (20-31); CHLORIDE LEVEL 107 MMOL/L (98-107); CREATININE FOR GFR 0.78 MG/DL (0.55-1.30); GLOMERULAR FILTRATION RATE > 60.0 (>32); GLUCOSE, FASTING 168 MG/DL (74-106); SODIUM LEVEL 142 MMOL/L (136-145); TOTAL PROTEIN 7.6 G/DL (5.7-8.2)
[2024-05-19] MEDS: ceFAZolin SOD 2 GM in IV 1 EA IV ONE (07:59)
[2024-05-19] MEDS: metroNIDAZOLE 500 MG in IV 1 EA IV ONE (08:07)
[2024-05-19] MEDS ORDERED: ROCURONIUM BROMIDE 50MG/5ML VIAL As Ordered ONE (08:14)
[2024-05-19] MEDS ORDERED: INDOCYANINE GREEN 25MG VIAL (IC-GREEN) As Ordered ONE (08:14)
[2024-05-19] MEDS ORDERED: ETOMIDATE INJ 20MG/10ML VIAL As Ordered ONE (08:14)
[2024-05-19] MEDS ORDERED: ePHEDrine SULFATE 25 MG/5 ML(5MG/ML) SYRINGE As Ordered ONE (08:14)
[2024-05-19] MEDS ORDERED: LIDOCAINE 2% 100MG/5ML SDV (FOR ANES.) As Ordered ONE (08:14)
[2024-05-19] MEDS ORDERED: ONDANSETRON 4MG 2ML VIAL As Ordered ONE (08:14)
[2024-05-19] MEDS ORDERED: SUGAMMADEX SODIUM 500 MG/5 ML VIAL (BRIDION) As Ordered ONE (08:14)
[2024-05-19] MEDS ORDERED: ACETAMINOPHEN 1000MG/100ML IV BAG As Ordered ONE (08:14)
[2024-05-19] MEDS ORDERED: HYDROmorphone HCL 2MG/ML 1ML VIAL As Ordered ONE (08:14)
[2024-05-19] MEDS ORDERED: propofoL 200 MG/20 ML VIAL As Ordered ONE (08:14)
[2024-05-19] MEDS ORDERED: fentaNYL 100 MCG/2 ML INJECTION As Ordered ONE (08:14)
[2024-05-19] MEDS ORDERED: dexmedeTOMIDine (4MCG/ML)200MCG/50ML BTL (PRECEDEX) As Ordered ONE (08:41)
[2024-05-19] MEDS ORDERED: KETOROLAC 60MG 2ML VIAL As Ordered ONE (08:45)
[2024-05-19] MEDS: ceFAZolin 2 GM/D5W 50 ML IV BAG As Ordered ONE (11:55)
[2024-05-19] MEDS: metroNIDAZOLE/NACL 500MG(5MG/ML) 100ML BAG As Ordered ONE (12:01)
[2024-05-19] MEDS: BUPivacaine LIPOSOME/PF 266MG 20ML VIAL (13.3MG/ML)(EXPAREL) As Ordered ONE (13:30)
[2024-05-19] MEDS ORDERED: HYDROMORPHONE HCL 0.5 MG/ 0.5 ML SYRINGE IV PRN (14:00)
[2024-05-19] MEDS: NS (Normal Saline) 0.9% 1,000 ML IV SCH (14:00)
[2024-05-19] MEDS ORDERED: ONDANSETRON 4MG 2ML VIAL IV PRN (14:05)
[2024-05-19] MEDS: fentaNYL 100 MCG/2 ML INJECTION IV PRN (14:23)
[2024-05-19] MEDS: ONDANSETRON 4MG 2ML VIAL IV PRN (14:24)
[2024-05-19] MEDS: oxyCODONE 5MG TAB PO PRN (14:41)
[2024-05-19 16:11] LABS: BASO % 0.2 % (0.0-1.0); HEMATOCRIT 38.3 % (36.0-47.0); HEMOGLOBIN 12.5 g/dl (12.0-15.5); LYMPH # 0.5 10^3/uL (1.5-5.0); LYMPH % 5.5 % (24.0-44.0); MEAN CORPUSCULAR HEMOGLOBIN 29.7 pg (27.0-33.0); MEAN CORPUSCULAR HGB CONC 32.6 g/dl (32.0-36.5); MONO # 0.5 10^3/uL (0.0-0.8); MONO % 5.7 % (2.0-8.0); NEUTROPHILS % 88.3 % (36.0-66.0); PLATELET COUNT, AUTOMATED 175 10^3/uL (150-450); RED BLOOD COUNT 4.21 10^6/uL (4.00-5.40)
[2024-05-19] MEDS: KCL 20MEQ IN D5/0.45NS 1000ML 1,000 ML IV SCH (16:15)
[2024-05-19 16:30] VITALS: BP 108/54; TEMP 97.7; O2SAT 96
[2024-05-19 16:39] LABS: BLOOD UREA NITROGEN 14 MG/DL (9-23); CALCIUM LEVEL 7.9 MG/DL (8.3-10.6); CARBON DIOXIDE LEVEL 22 MMOL/L (20-31); CHLORIDE LEVEL 109 MMOL/L (98-107); CREATININE FOR GFR 0.83 MG/DL (0.55-1.30); GLOMERULAR FILTRATION RATE > 60.0 (>32); GLUCOSE, FASTING 208 MG/DL (74-106); POTASSIUM SERUM 3.8 MMOL/L (3.5-5.1); SODIUM LEVEL 142 MMOL/L (136-145)
[2024-05-19] MEDS: ACETAMINOPHEN 500 MG TAB PO SCH (17:37)
[2024-05-19] MEDS ORDERED: HOME MED LIST COMPLETE! XX SCH (17:50)
[2024-05-19 19:50] VITALS: BP 111/55; TEMP 97.9; O2SAT 96
[2024-05-19] MEDS: ALVIMOPAN 12 MG CAPSULE (ENTEREG) PO SCH (21:03)
[2024-05-19] MEDS: MOM 30ML SUSPENSION UDC PO SCH (21:03)
[2024-05-20] VITALS (7 sets, daily range): BP systolic 92–140; BP diastolic 48–65; TEMP 97.7–98.6; O2SAT 92–98
[2024-05-20] MEDS: ENOXAPARIN 30MG/0.3ML SYRINGE (J1650 PER 10MG) SC SCH (08:31)
[2024-05-20 08:32] LABS: HEMATOCRIT 36.4 % (36.0-47.0); HEMOGLOBIN 11.7 g/dl (12.0-15.5); MEAN CORPUSCULAR HEMOGLOBIN 29.6 pg (27.0-33.0); MEAN CORPUSCULAR HGB CONC 32.1 g/dl (32.0-36.5); MEAN CORPUSCULAR VOLUME 92.2 fl (80.0-96.0); PLATELET COUNT, AUTOMATED 181 10^3/uL (150-450); RED BLOOD COUNT 3.95 10^6/uL (4.00-5.40); WHITE BLOOD COUNT 10.9 10^3/uL (4.0-10.0)
[2024-05-20] MEDS: PANTOPRAZOLE 40MG VIAL IV SCH (08:32)
[2024-05-20] MEDS: traMADol ER 100MG TABLET (ULTRAM ER) PO PRN (08:37)
[2024-05-20 08:47] LABS: BLOOD UREA NITROGEN 13 MG/DL (9-23); CARBON DIOXIDE LEVEL 25 MMOL/L (20-31); CHLORIDE LEVEL 105 MMOL/L (98-107); CREATININE FOR GFR 0.79 MG/DL (0.55-1.30); GLOMERULAR FILTRATION RATE > 60.0 (>32); GLUCOSE, FASTING 203 MG/DL (74-106); POTASSIUM SERUM 3.9 MMOL/L (3.5-5.1); SODIUM LEVEL 137 MMOL/L (136-145)
[2024-05-21] VITALS (7 sets, daily range): BP systolic 126–155; BP diastolic 56–80; TEMP 97.5–98.1; O2SAT 93–98
[2024-05-21] MEDS ORDERED: GLUCOSE 4 GM CHEW PO PRN (11:25)
[2024-05-21] MEDS ORDERED: GLUCAGON INJ 1MG VIAL SC PRN (11:25)
[2024-05-21] MEDS ORDERED: DEXTROSE 50% 50ML SYRINGE IV PRN (11:25)
[2024-05-21] MEDS ORDERED: PILL CUTTER 1 EACH XX PRN (11:40)
[2024-05-21] MEDS: atenoloL 50 MG TAB PO SCH (12:16)
[2024-05-21] MEDS: CALCIUM GLUCONATE 1,000 MG in DEXTROSE 5% (D5W) MINI-BAG PLU 100 ML IV ONE (12:17)
[2024-05-21 12:32] LABS: CHOLESTEROL LEVEL 110 MG/DL (<200); CHOLESTEROL RISK RATIO 2.38 (<5); HDL CHOLESTEROL 46.2 MG/DL (>40); LDL CHOLESTEROL 47.8 MG/DL (<100); NON-HDL-C 63.8 MG/DL; TRIGLYCERIDES LEVEL 80 MG/DL (<150)
[2024-05-21 12:47] LABS: HEMOGLOBIN A1c 7.3 % (4.0-6.0)
[2024-05-21] MEDS: INSULIN LISPRO (NovoLOG) PER UNIT SC SCH ×2 (14:25→21:00)
[2024-05-21] MEDS ORDERED: prednisoLONE ACET 1% OPHTH SUSP 5ML OU SCH (15:00)
[2024-05-22 03:28] VITALS: BP 153/70; TEMP 97.9; O2SAT 94
[2024-05-22 05:09] LABS: HEMATOCRIT 32.2 % (36.0-47.0); HEMOGLOBIN 10.5 g/dl (12.0-15.5); MEAN CORPUSCULAR HEMOGLOBIN 29.7 pg (27.0-33.0); MEAN CORPUSCULAR HGB CONC 32.6 g/dl (32.0-36.5); MEAN CORPUSCULAR VOLUME 91.2 fl (80.0-96.0); PLATELET COUNT, AUTOMATED 140 10^3/uL (150-450); RED BLOOD COUNT 3.53 10^6/uL (4.00-5.40); WHITE BLOOD COUNT 6.1 10^3/uL (4.0-10.0)
[2024-05-22 08:00] VITALS: BP 142/72; TEMP 98.1; O2SAT 98
[2024-05-22 08:08] LABS: ALBUMIN 2.4 G/DL (3.2-5.2); ALKALINE PHOSPHATASE 57 U/L (35-104); ALT/SGPT 11 U/L (7.0-40); AST/SGOT 11 U/L (<34); BILIRUBIN,TOTAL 0.8 MG/DL (0.3-1.2); BLOOD UREA NITROGEN 6 MG/DL (9-23); CALCIUM LEVEL 8.2 MG/DL (8.3-10.6); CARBON DIOXIDE LEVEL 25 MMOL/L (20-31); CHLORIDE LEVEL 113 MMOL/L (98-107); CREATININE FOR GFR 0.59 MG/DL (0.55-1.30); GLOMERULAR FILTRATION RATE > 60.0 (>32); GLUCOSE, FASTING 141 MG/DL (74-106); POTASSIUM SERUM 4.2 MMOL/L (3.5-5.1); SODIUM LEVEL 143 MMOL/L (136-145); TOTAL PROTEIN 4.6 G/DL (5.7-8.2)
[2024-05-22] MEDS: prednisoLONE ACET 1% OPHTH SUSP 5ML OU SCH (09:00)
[2024-05-22 12:00] VITALS: BP 143/75; TEMP 98.2; O2SAT 95
[2024-05-22 16:00] VITALS: BP 146/76; TEMP 97.9; O2SAT 98
[2024-05-22 20:09] VITALS: BP 142/77; TEMP 98.1; O2SAT 95
[2024-05-22 23:46] VITALS: BP 144/77; TEMP 98.1; O2SAT 94
[2024-05-23 03:39] VITALS: BP 147/71; TEMP 97.9; O2SAT 94
[2024-05-23] MEDS: LEVEMIR (INSULIN DETEMIR) 1 UNITS/0.01ML SC SCH (08:22)
[2024-05-23 08:24] VITALS: BP 171/95
[2024-05-23] MEDS ORDERED: TRAM100T21 PO (09:29)
[2024-05-23] MEDS ORDERED: METF-839 PO (09:29)
[2024-05-23] MEDS ORDERED: TRAM50TA2 PO (10:25)
[2024-05-23] MEDS: PREVNAR-20 VACCINE 0.5ML SYRINGE IM.IMMUN ONE (10:54)
== END 2024-05-23 11:53 | disposition home health service (06) | DRG 330 ==
LOC: M OR 06:09 → M MSPAV 15:57
PROVIDERS: ADMIT Surgery; ATTEND Surgery
PROC: 0T788DZ Dilation of Bilateral Ureters with Intraluminal Device, Via Natural or Artificial Opening Endoscopic (ICD-10-PCS; 2024-05-19)
PROC: 0DTG0ZZ Resection of Left Large Intestine, Open Approach (ICD-10-PCS; principal; 2024-05-19 07:30)
PROC: 0DN80ZZ Release Small Intestine, Open Approach (ICD-10-PCS; 2024-05-19 07:30)
DX: C18.4 Malignant neoplasm of transverse colon (principal); H20.9 Unspecified iridocyclitis; K66.0 Peritoneal adhesions (postprocedural) (postinfection); I10 Essential (primary) hypertension; E78.00 Pure hypercholesterolemia, unspecified; Z53.31 Laparoscopic surgical procedure converted to open procedure; E11.65 Type 2 diabetes mellitus with hyperglycemia; E03.9 Hypothyroidism, unspecified; E83.51 Hypocalcemia; Z92.21 Personal history of antineoplastic chemotherapy; Z79.899 Other long term (current) drug therapy

== ENCOUNTER 2024-07-19 18:06 | Emergency (ER) | payer OTHER, MEDICAID ==
[~2024-07-19] VITALS: Ht 172.7 cm; Wt 77.3 kg
[~2024-07-19 18:06] MED LIST changes: +METF-839 PO; +TRAM100T21 PO; +TRAM50TA2 PO; -UNRESOLVED CLARIFICATION ENTRY XX SCH
[2024-07-19 19:54] LABS: BASO % 0.5 % (0.0-1.0); EOS # 0.1 10^3/uL (0.0-0.5); EOS % 1.5 % (0.0-3.0); HEMOGLOBIN 12.6 g/dl (12.0-15.5); LYMPH # 1.7 10^3/uL (1.5-5.0); LYMPH % 27.6 % (24.0-44.0); MEAN CORPUSCULAR HEMOGLOBIN 29.4 pg (27.0-33.0); MEAN CORPUSCULAR HGB CONC 32.3 g/dl (32.0-36.5); MEAN CORPUSCULAR VOLUME 91.1 fl (80.0-96.0); MONO # 0.5 10^3/uL (0.0-0.8); MONO % 8.9 % (2.0-8.0); NEUTROPHILS # 3.7 10^3/uL (1.5-8.5); NEUTROPHILS % 61.3 % (36.0-66.0); PLATELET COUNT, AUTOMATED 176 10^3/uL (150-450); RED BLOOD COUNT 4.28 10^6/uL (4.00-5.40); WHITE BLOOD COUNT 6.1 10^3/uL (4.0-10.0)
[2024-07-19 20:15] LABS: ALBUMIN 3.9 G/DL (3.2-5.2); ALKALINE PHOSPHATASE 112 U/L (35-104); ALT/SGPT 19 U/L (7.0-40); AST/SGOT 12 U/L (<34); BILIRUBIN,TOTAL 0.5 MG/DL (0.3-1.2); BLOOD UREA NITROGEN 15 MG/DL (9-23); CALCIUM LEVEL 9.5 MG/DL (8.3-10.6); CARBON DIOXIDE LEVEL 27 MMOL/L (20-31); CHLORIDE LEVEL 106 MMOL/L (98-107); CREATININE FOR GFR 0.66 MG/DL (0.55-1.30); GLOMERULAR FILTRATION RATE > 60.0 (>32); GLUCOSE, FASTING 124 MG/DL (74-106); POTASSIUM SERUM 4.9 MMOL/L (3.5-5.1); SODIUM LEVEL 142 MMOL/L (136-145); TOTAL PROTEIN 7.1 G/DL (5.7-8.2)
[2024-07-19 20:17] LABS: INR 0.94; PROTHROMBIN TIME 12.8 SECONDS (12.5-14.5)
[2024-07-19] MEDS ORDERED: ISOVUE-370 76% 100ML VIAL As Ordered ONE (20:32)
[2024-07-19 20:37] LABS: PARTIAL THROMBOPLASTIN TIME 29.5 SECONDS (24.8-34.2)
[2024-07-19 20:43] LABS: CK-MB VALUE MASS < 1.0 NG/ML (<3.6)
[2024-07-19 20:46] LABS: CPK CREATINE PHOSPHOKINASE 63 U/L (34-145); MB/CK RELATIVE INDEX 1.58 (< OR =4)
[2024-07-20] MEDS: ASPIRIN 325 MG TAB PO ONE (01:05)
[2024-07-20 01:30] VITALS: BP 153/71; TEMP 98; O2SAT 97
== END 2024-07-20 01:41 | disposition short-term general hospital (02) ==
LOC: M ED 18:06
DX: G45.3 Amaurosis fugax (principal); K92.2 Gastrointestinal hemorrhage, unspecified; I10 Essential (primary) hypertension; R94.31 Abnormal electrocardiogram [ECG] [EKG]; Z79.84 Long term (current) use of oral hypoglycemic drugs; Z79.899 Other long term (current) drug therapy
CPT/HCPCS: 36415; 70450; 70496; 70498; 71045; 74177; 80053; 82550; 82553; 84484; 85025; 85610; 85730; 86850; 86900; 86901; 93005; 93041; 94760; 99285; Q9967